=== PATIENT | female | born 1970 | race Two or more races ===

== ENCOUNTER 2025-05-08 20:34 | Inpatient (IN) | payer MEDICAID, OTHER ==
[~2025-05-08] VITALS: Ht 162.6 cm; Wt 77.2 kg
--- NOTE | 2025-05-08 20:50 | ED.PDOC ---
GI ASSESSMENT HPI Comments 54 year old female presents to the ED via EMS with a chief complaint of nausea/vomiting onset today (05/08/25). Per EMS, patient has PMHx DM, HTN, HLD. Patient is not able to see, but able to speak, ambulate with assistance. She began experiencing nausea/vomiting, red in color, family was concerned for possible blood, 911 was called. Since this morning patient was experiencing poor appetite, abdominal pain, generalized weakness. Patient was hypertensive upon EMS arrival 190 systolic, upon ED arrival BP was 207 systolic. No other symptoms or modifying factors present at this time. Chief Complaint: GI Bleed Time Seen by MD: 20:40 Reviewed Notes: Medications, Allergies Allergies: Coded Allergies: Iodine (Verified Allergy, Unknown, 05/08/25) Information Source: Patient, Emergency Med Personnel Mode of Arrival: EMS Timing: Hours Duration: Since onset Prehospital treatment: None Quality: Sharp Vomitus: Bloody Severity: Moderate Recent: None Recent Hx of: None Modifying Factors: Nothing Associated sign and symptoms: Nausea, Vomiting, Hematemesis, Abdominal Pain Past Medical History PAST MEDICAL HISTORY: DM, High Lipids, HTN Surgical History: Denies all surgeries TELEGRAPH OFFICE MANAGER History: No Pertinent TELEGRAPH OFFICE MANAGER History Family History Family History: Reviewed,noncontributory to illness, No family hx of Cancer, No family hx of DM, No family hx of Heart yon, No family hx of HTN, No family hx ofKidney yon, No family hx of Liver yon, No family hx of Lung yon, No family hx of Stroke Social History Smoker: Non-Smoker Alcohol: Denies ETOH Use Drugs: Denies Drug Use Lives In: Home Constitutional: reports: weakness; denies: chills, diaphoresis, fatigue, fever, malaise, sweats, others EENTM: denies: blurred vision, double vision, ear bleeding, ear discharge, ear drainage, ear pain, ear ringing, eye pain, eye redness, hearing loss, mouth pain, mouth swelling, nasal discharge, nose bleeding, nose congestion, nose pain, photophobia, tearing, throat pain, throat swelling, voice changes, others Respiratory: denies: cough, hemoptysis, orthopnea, SOB at rest, shortness of breath, SOB with excertion, stridor, wheezing, others Cardiovascular: reports: others (HYPERTENSION) Gastrointestinal: reports: abdominal pain, hematemesis, nausea, poor appetite, vomiting; denies: abdomen distended, blood streaked bowels, constipated, diarrhea, dysphagia, difficulty swallowing, melena, poor fluid intake, rectal bleeding, rectal pain, others Genitourinary: denies: abnormal vagina bleeding, burning, dyspareunia, dysuria, flank pain, frequency, hematuria, incontinence, pain, , vagina discharge, urgency, others Neurological: reports: weakness; denies: dizziness, fainting, headache, left sided numbness, left sided weakness, numbness, paresthesia, pre-existing deficit, right sided numbness, right sided weakness, seizure, speech problems, tingling, tremors, others Musculoskeletal: denies: back pain, gout, joint pain, joint swelling, muscle pain, muscle stiffness, neck pain, others Integumetry: denies: bruises, change in color, change in hair/nails, dryness, laceration, lesions, lumps, rash, wounds, others Allergic/Immunocompromised: denies: Difficulty Healing, Frequent Infections, Hives, Itching, others Hematologic/Lymphatic: denies: anemia, blood clots, easy bleeding, easy bruising, swollen glands, others Endocrine: denies: excessive hunger, excessive sweating, excessive thirst, excessive urination, flushing, intolerance to cold, intolerance to heat, unexplained weight gain, unexplained weight loss, others Psychiatric: denies: anxiety, bipolar disorder, depression, hopeless, panic disorder, schizophrenia, sleepless, suicidal, others All Other Systems: Reviewed and Negative Physical Exam General Appearance: Normal HEENT: Normal ENT Inspection, Pharynx Normal, TMs Normal Neck: Full Range of Motion, Non-Tender, Normal, Normal Inspection Respiratory: Chest Non-Tender, Lungs Clear, No Accessory Muscle Use, No Respiratory Distress, Normal Breath Sounds Cardiovascular: No Edema, No JVD, No Murmur, No Gallop, Normal Peripheral Pulses, Regular Rate/Rhythm Breast Exam: Deferred Gastrointestinal: No Organomegaly, Non Tender, No Pulsatile Mass, Normal Bowel Sounds, Soft Genitalia: Deferred Pelvic: Deferred Rectal: Deferred Extremities: No calf tenderness, Normal capillary refill, Normal inspection, Normal range of motion, Non-tender, No pedal edema Musculoskeletal : Apperance: Normal Neurologic: Alert, tanbark peeler II-XII nml as Tested, No Motor Deficits, Normal Affect, Normal Mood, No Sensory Deficits Cerebellar Function: Normal Reflexes: Normal Skin: Dry, Normal Color, Warm Lymphatic: No Adenopathy Was a procedure done? Was a procedure done?: No GI differential Dx Differential Diagnosis: Bowel Obstruction, Constipation, Gastritis/PUD, Gastroenteritis, GI hemorrhage, Dehydration, Other X-Ray, Labs, Meds, VS Vital Signs Date Time Temp Pulse Resp B/P (MAP) Pulse Ox O2 Delivery O2 Flow Rate FiO2 05/08/25 22:18 182/94 (123) 05/08/25 21:38 98.1 87 20 185/98 (127) 99 98.1 05/08/25 21:38 86 20 99 Room Air* 0 21 05/08/25 20:44 97.7 91 20 207/130 96 97.7 Lab Test 05/08/25 22:26 05/08/25 21:15 Range/Units Troponin I High Sensitivity 38 *H 43 *H </=34 ng/L White Blood Count 10.7 4.4-10.8 10^3/uL Red Blood Count 4.08 4.0-5.20 10^6/uL Hemoglobin 11.9 L 12.2-16.2 g/dL Hematocrit 35.1 L 36.0-46.0 % Mean Corpuscular Volume 86.0 80.0-100.0 fL Mean Corpuscular Hemoglobin 29.2 28.0-32.0 pg Mean Corpuscular Hemoglobin Concent 34.0 32.0-36.0 g/dL Red Cell Distribution Width 15.1 H 11.8-14.3 % Platelet Count 402 140-450 10^3/uL Mean Platelet Volume 8.0 6.9-10.8 fL Neutrophils (%) (Auto) 87.8 H 37.0-80.0 % Lymphocytes (%) (Auto) 8.8 L 10.0-50.0 % Monocytes (%) (Auto) 2.3 0.0-12.0 % Eosinophils (%) (Auto) 0.6 0.0-7.0 % Basophils (%) (Auto) 0.5 0.0-2.0 % Neutrophils # (Auto) 9.4 H 1.6-8.6 10 ^3/uL Lymphocytes # (Auto) 0.9 0.4-5.4 10 ^3/uL Monocytes # (Auto) 0.2 0-1.3 10 ^3/uL Eosinophils # (Auto) 0.1 0-0.8 10 ^3/uL Basophils # (Auto) 0.1 0-0.2 10 ^3/uL Nucleated Red Blood Cells 0.0 % Prothrombin Time 10.3 9.3-11.8 sec Prothrombin Time INR 0.97 0.9-1.15 Activated Partial Thromboplast Time 25.9 24.5-34.5 SEC Sodium Level 139 136-145 mmol/L Potassium Level 3.3 L 3.5-5.1 mmol/L Chloride Level 106 98-107 mmol/L Carbon Dioxide Level 15 L 20-31 mmol/L Anion Gap 18 H 5-15 Blood Urea Nitrogen 52 H 9-23 mg/dL Creatinine 1.97 H 0.550-1.02 mg/dL Glomerular Filtration Rate Calc 30 >90 mL/min BUN/Creatinine Ratio 26.4 H 10.0-20.0 Serum Glucose 156 H 74-106 mg/dL Calcium Level 9.3 8.7-10.4 mg/dL Magnesium Level 2.9 H 1.6-2.6 mg/dL Total Bilirubin 0.5 0.2-1.0 mg/dL Aspartate Amino Transferase (AST) 20 13-40 U/L Alanine Aminotransferase (ALT) 16 7-40 U/L Alkaline Phosphatase 64 46-116 U/L Total Protein 7.5 5.7-8.2 g/dL Albumin 4.2 3.2-4.8 g/dL Current Medications Medications (Trade) Dose Ordered Sig/Micheal Route Start Time Stop Time Status Last Admin Sodium Chloride 1,000 ml @ 1,000 mls/hr Q1H ONCE IV 05/08/25 21:00 05/08/25 21:59 DC 05/08/25 21:00 Ondansetron HCl (Zofran) 4 mg ONCE ONCE IV 05/08/25 21:00 05/08/25 21:01 DC 05/08/25 21:[address] [address] Ph: [phone] DIAGNOSTIC IMAGING Diagnostic Imaging Report : [id number] Signed PATIENT: MONICA HUYNH ACCT: [id number] UNIT: [id number] : 1970 LOC: ER ROOM / BED: / AGE / SEX: 54 / F ADM STATUS: REG ER SERVICE 57 ORDERING PHYSICIAN: BRANDON PRADO MD PROCEDURE(s): CXRP - CHEST PORTABLE REASON: SOB ORDER NUMBER(s): [id number], ACCESSION NUMBER(s): [id number] CHEST RADIOGRAPH Indication: SOB Technique: Single frontal view of the chest was obtained Comparison: None FINDINGS: Lines and Tubes: None Lungs: No focal consolidation. Pleura: No effusion. No pneumothorax. Cardiomediastinal contours: Unremarkable Bones: No acute osseous abnormality. IMPRESSION: No acute cardiopulmonary disease. ATED BY: HOLLY ADKINS DO DICTATED DATE/TIME: 05/08/252125 SIGNED BY: HOLLY ADKINS DO SIGNED DATE/TIME: 05/08/252125 CC: Time of 1ST Reevaluation: 21:10 Reevaluation 1ST: Unchanged Patient Education/Counseling: Diagnosis, Treatment Family Education/Counseling: No Family Present Additional Information The following tests were ordered, and results were reviewed by me: TROP-x3, CBC, CMP, PTPTT, XY CHEST, MAGNESIUM, EKG Additional Information was gathered from interviewing the following independent historians: EMS I reviewed and agreed with the following test results read by other providers: XY CHEST I discussed treatment and results with medical personnel and: patient Comprehensive systems review obtained and negative except for what is stated in the HPI. SEPSIS Sepsis Screen Physician Orders Chest Portable (05/08/25 20:58) Electrocardigram (05/08/25 20:58) Troponin-I Hs (05/08/25 23:58) Vital Signs Date Time Temp Pulse Resp B/P (MAP) Pulse Ox O2 Delivery O2 Flow Rate FiO2 05/08/25 22:18 182/94 (123) 05/08/25 21:38 98.1 87 20 185/98 (127) 99 98.1 05/08/25 21:38 86 20 99 Room Air* 0 21 05/08/25 20:44 97.7 91 20 207/130 96 97.7 Laboratory Tests Test 05/08/25 21:15 White Blood Count 10.7 10^3/uL (4.4-10.8) Medications Medications Dose Ordered Sig/Micheal Route Start Time Stop Time Status Last Admin Dose Admin Ondansetron HCl 4 mg ONCE ONCE IV 05/08/25 21:00 05/08/25 21:01 DC 05/08/25 21:00 Sodium Chloride 1,000 ml @ 1,000 mls/hr Q1H ONCE IV 05/08/25 21:00 05/08/25 21:59 DC 05/08/25 21:00 Departure 1 Departure Time of Disposition: 23:35 Impression: Primary Impression: Intractable vomiting Additional Impressions: Dehydration Intermediate coronary syndrome Blindness Disposition: ADMITTED INPATIENT Admit to: Tele Condition: Guarded Comments 54-year-old female with a history of blindness now presents by ambulance with nausea and vomiting malaise. There was streaks of blood in her vomit per family. Patient's H&H are slightly low with a hemoglobin of 12 and hematocrit at 35. Mild hypokalemia at 3.3. Acute renal injury with BUN creatinine high at 52 and 1.97. Initial troponins borderline elevated at 43 and 38. Patient was given aspirin and Zofran and IV fluids. Patient will need admission for supportive care and further workup. Critical Care Note Critical Care Time?: Yes (35 min-critical care time only) Critical care comment: Total critical care time: Approximately 36 minutes Due to a high probability of clinically significant, life threatening deterioration, the patient required my highest level of preparedness to intervene emergently and I personally spent this critical care time directly and personally managing the patient. This critical care time included obtaining a history; examining the patient; pulse oximetry; ordering and review of studies; arranging urgent treatment with development of a management plan; evaluation of patient's response to treatment; frequent reassessment; and, discussions with other providers. This critical care time was performed to assess and manage the high probability of imminent, life-threatening deterioration that could result in multi-organ failure. It was exclusive of separately billable procedures and treating other patients. Stability Stability form required: No I personally scribed for BRANDON PRADO MD ([email or web address]) on 05/08/25 at 20:50. Electronically submitted by Sangita Doyle ([email or web address]). I personally scribed for BRANDON PRADO MD ([email or web address]) on 05/08/25 at 21:49. Electronically submitted by Sangita Doyle ([email or web address]). BRANDON PRADO MD May 08, 2025 20:50
[2025-05-08] MEDS: SODIUM CHLORIDE 0.9% 1,000 ML IV ONE (21:00)
[2025-05-08] MEDS: ONDANSETRON HCL 4 MG/2 ML VIAL IV ONE (21:00)
--- NOTE | 2025-05-08 21:29 | DVH ---
CHEST RADIOGRAPH Indication: SOB Technique: Single frontal view of the chest was obtained Comparison: None FINDINGS: Lines and Tubes: None Lungs: No focal consolidation. Pleura: No effusion. No pneumothorax. Cardiomediastinal contours: Unremarkable Bones: No acute osseous abnormality. IMPRESSION: No acute cardiopulmonary disease.
[2025-05-08 21:38] VITALS: PULSE 86; RESP 20; O2SAT 99
[2025-05-08 21:42] LABS: Hematocrit 35.1 % (36.0-46.0); Hemoglobin 11.9 g/dL (12.2-16.2); Mean Corpuscular Hemoglobin 29.2 pg (28.0-32.0); Mean Corpuscular Volume 86.0 fL (80.0-100.0); Nucleated Red Blood Cells % 0.0 %
[2025-05-08 21:56] LABS: Alanine Aminotransferase 16 U/L (7-40); Albumin 4.2 g/dL (3.2-4.8); Alkaline Phosphatase 64 U/L (46-116); Anion Gap 18 (5-15); BUN/Creatinine Ratio 26.4 (10.0-20.0); Calcium 9.3 mg/dL (8.7-10.4); Chloride 106 mmol/L (98-107); Sodium 139 mmol/L (136-145); Total Protein 7.5 g/dL (5.7-8.2)
[2025-05-08 21:57] LABS: Bilirubin, Total 0.5 mg/dL (0.2-1.0)
[2025-05-08 22:05] LABS: INR 0.97 (0.9-1.15); Partial Thromboplastin Time 25.9 SEC (24.5-34.5); Prothrombin Time 10.3 sec (9.3-11.8)
[2025-05-08 22:11] LABS: Blood Urea Nitrogen 52 mg/dL (9-23); Carbon Dioxide 15 mmol/L (20-31); Glucose 156 mg/dL (74-106); Magnesium 2.9 mg/dL (1.6-2.6); Potassium 3.3 mmol/L (3.5-5.1)
[2025-05-09] MEDS: hydrALAZINE HCL 20 MG/ML VL IV ONE (00:32)
[2025-05-09] MEDS ORDERED: HYDROcodone-ACET 5/325MG TAB PO PRN (01:00)
[2025-05-09] MEDS ORDERED: ACETAMINOPHEN 325 MG TAB PO PRN (01:00)
[2025-05-09] MEDS ORDERED: DEXTROSE (50%) 50ML SYRG IV PRN (01:00)
--- NOTE | 2025-05-09 01:16 | DVHHP2 ---
History of Present Illness Reason for Visit: Elevated blood pressure History of Present Illness 54-year-old female presents for evaluation of elevated blood pressure. Patient reports having elevated blood pressure since this morning initially reading in the 200s. She has also had episodes of nausea with vomiting. No headache. Patient is legally blind. Denies chest pain or palpitations. No other acute complaints. Past Medical History CHF, hypertension, dyslipidemia, diabetes mellitus Past Surgical History Denies Family History Noncontributory Smoke: No ALCOHOL: none Drugs: None Lives: with Family Review of Systems Review of Systems Review of systems are currently negative otherwise addressed in HPI. Allergies: Coded Allergies: Iodine (Verified Allergy, Unknown, 05/08/25) Medications Current Medications Medications Dose Ordered Sig/Micheal Route Start Time Stop Time Status Last Admin Dose Admin Aspirin 162 mg DAILY PO 05/09/25 10:00 Pantoprazole Sodium 40 mg DAILY@0600 PO 05/09/25 06:00 Tamsulosin HCl 0.4 mg QPM PO 05/09/25 18:00 Nifedipine 30 mg DAILY PO 05/09/25 10:00 Losartan Potassium 100 mg DAILY PO 05/09/25 10:00 Furosemide 40 mg BIDD PO 05/09/25 06:00 Atorvastatin Calcium 40 mg HS PO 05/09/25 22:00 Hydralazine HCl 50 mg Q8HR PO 05/09/25 06:00 Empaglifozin 10 mg DAILY PO 05/09/25 10:00 Isosorbide Mononitrate 60 mg DAILY PO 05/09/25 10:00 Hydralazine HCl 10 mg Q6HP PRN IV 05/09/25 01:00 Diagnostic Test (Pha) 1 strip ACHS 05/09/25 07:00 Insulin Human Regular ACHS SC 05/09/25 07:00 Dextrose 50 ml UD PRN IV 05/09/25 01:00 Acetaminophen/ Hydrocodone Bitart 1 tab Q4HP PRN PO 05/09/25 01:00 Ondansetron HCl 4 mg Q4HP PRN IV 05/09/25 01:00 Acetaminophen 650 mg Q6HP PRN PO 05/09/25 01:00 Exam Vital Signs Vital Signs Date Time Temp Pulse Resp B/P (MAP) Pulse Ox O2 Delivery O2 Flow Rate FiO2 05/09/25 00:43 177/95 (122) 05/09/25 00:02 91 05/08/25 21:38 98.1 20 99 98.1 05/08/25 21:38 Room Air* 0 21 Exam Gen: 54-year-old female in mild distress Skin: Warm, dry, normal color and texture, no rash. HEENT: Normocephalic atraumatic, mucous membranes moist and pink. Neck: Cervical and supraclavicular nodes normal without enlargement, trachea is midline, thyroid gland is normal without masses. Pulmonary: Clear to auscultation and percussion bilaterally. Cardiac: Regular rate and rhythm. No murmur Abdomen: Soft, nontender, nondistended, bowel sounds present all 4 quadrants, no guarding, no rigidity, no organomegaly. Extremities: No cyanosis, clubbing, no edema Neuro: Cranial nerves II through XII grossly intact, normal affect and speech, no focal motor deficits. Labs/Xrays ORDERING PHYSICIAN: BRANDON PRADO MD PROCEDURE(s): CXRP - CHEST PORTABLE REASON: SOB ORDER NUMBER(s): [id number], ACCESSION NUMBER(s): [id number] CHEST RADIOGRAPH Indication: SOB Technique: Single frontal view of the chest was obtained Comparison: None FINDINGS: Lines and Tubes: None Lungs: No focal consolidation. Pleura: No effusion. No pneumothorax. Cardiomediastinal contours: Unremarkable Bones: No acute osseous abnormality. IMPRESSION: No acute cardiopulmonary disease. Labs Test 05/09/25 00:22 05/08/25 21:15 Range/Units White Blood Count 10.7 4.4-10.8 10^3/uL Red Blood Count 4.08 4.0-5.20 10^6/uL Hemoglobin 11.9 L 12.2-16.2 g/dL Hematocrit 35.1 L 36.0-46.0 % Mean Corpuscular Volume 86.0 80.0-100.0 fL Mean Corpuscular Hemoglobin 29.2 28.0-32.0 pg Mean Corpuscular Hemoglobin Concent 34.0 32.0-36.0 g/dL Red Cell Distribution Width 15.1 H 11.8-14.3 % Platelet Count 402 140-450 10^3/uL Mean Platelet Volume 8.0 6.9-10.8 fL Neutrophils (%) (Auto) 87.8 H 37.0-80.0 % Lymphocytes (%) (Auto) 8.8 L 10.0-50.0 % Monocytes (%) (Auto) 2.3 0.0-12.0 % Eosinophils (%) (Auto) 0.6 0.0-7.0 % Basophils (%) (Auto) 0.5 0.0-2.0 % Neutrophils # (Auto) 9.4 H 1.6-8.6 10 ^3/uL Lymphocytes # (Auto) 0.9 0.4-5.4 10 ^3/uL Monocytes # (Auto) 0.2 0-1.3 10 ^3/uL Eosinophils # (Auto) 0.1 0-0.8 10 ^3/uL Basophils # (Auto) 0.1 0-0.2 10 ^3/uL Nucleated Red Blood Cells 0.0 % Prothrombin Time 10.3 9.3-11.8 sec Prothrombin Time INR 0.97 0.9-1.15 Activated Partial Thromboplast Time 25.9 24.5-34.5 SEC Sodium Level 139 136-145 mmol/L Potassium Level 3.3 L 3.5-5.1 mmol/L Chloride Level 106 98-107 mmol/L Carbon Dioxide Level 15 L 20-31 mmol/L Anion Gap 18 H 5-15 Blood Urea Nitrogen 52 H 9-23 mg/dL Creatinine 1.97 H 0.550-1.02 mg/dL Glomerular Filtration Rate Calc 30 >90 mL/min BUN/Creatinine Ratio 26.4 H 10.0-20.0 Serum Glucose 156 H 74-106 mg/dL Calcium Level 9.3 8.7-10.4 mg/dL Magnesium Level 2.9 H 1.6-2.6 mg/dL Total Bilirubin 0.5 0.2-1.0 mg/dL Aspartate Amino Transferase (AST) 20 13-40 U/L Alanine Aminotransferase (ALT) 16 7-40 U/L Alkaline Phosphatase 64 46-116 U/L B-Type Natriuretic Peptide 581.48 0-100 pg/mL Total Protein 7.5 5.7-8.2 g/dL Albumin 4.2 3.2-4.8 g/dL SEPSIS Sepsis Screen Date sepsis recognized/suspect: May 08, 2025 Time Sepsis recognized/suspect: 2142 Recent Procedure: No On Antibiotic Therapy: No Respiratory Rate >20: No Heart Rate >90: No Temp<36 C (96.8 F) or >38.3 C: No SBP <90 or MAP <65 mmHG: No New Acute Mental Status Change: No Is the patient on CPAP, BIPAP,: No Physician Orders Chest Portable (05/08/25 20:58) Electrocardigram (05/08/25 20:58) Troponin-I Hs (05/08/25 23:58) Admit (05/09/25 00:53) Aspirin Tablet (05/09/25 10:00) Tamsulosin Hydrochloride (Flomax) (05/09/25 18:00) Nifedipine Er (Procardia Xl (Time-Releas (05/09/25 10:00) Losartan Tablet (Cozaar Tablet) (05/09/25 10:00) Furosemide Tablet (Lasix Tablet) (05/09/25 06:00) Atorvastatin (Lipitor) (05/09/25 22:00) Hydralazine Hcl Tablet (Apresoline Table (05/09/25 06:00) Empagliflozin (Jardiance) (05/09/25 10:00) Isosorbide Mononitrate Tablet (Imdur Er (05/09/25 10:00) Hydralazine Injection (Apresoline Inject (05/09/25 01:00) Basic Metabolic Panel (05/10/25 04:00) Glucose Blood (Accu-Chek Comfort Curve T (05/09/25 07:00) Insulin R (Human) (Insulin R) (05/09/25 07:00) Dextrose 50% Syringe (05/09/25 01:00) Hydrocodone-Acet 5/325mg Tab ([place] 5/32 (05/09/25 01:00) Ondansetron Hcl (Zofran) (05/09/25 01:00) Cardiac Diet-2gna,Lofat,Lochol (05/09/25 Breakfast) Echo 2d Mode Cardiac Dop (05/09/25 00:53) Condition: Stable (05/09/25 00:53) Acetaminophen Tablet (Tylenol Tablet) (05/09/25 01:00) Bedrest With Bathroom Privileg (05/09/25 00:53) Pantoprazole Tablet (Protonix Tablet) (05/09/25 06:00) Vital Signs Date Time Temp Pulse Resp B/P (MAP) Pulse Ox O2 Delivery O2 Flow Rate FiO2 05/09/25 00:43 177/95 (122) 05/09/25 00:32 190/104 05/09/25 00:02 91 193/105 (134) 05/08/25 22:18 182/94 (123) 05/08/25 21:38 98.1 87 20 185/98 (127) 99 98.1 05/08/25 21:38 86 20 99 Room Air* 0 21 05/08/25 20:44 97.7 91 20 207/130 96 97.7 Laboratory Tests Test 05/08/25 21:15 White Blood Count 10.7 10^3/uL (4.4-10.8) Medications Medications Dose Ordered Sig/Micheal Route Start Time Stop Time Status Last Admin Dose Admin Hydralazine HCl 10 mg ONCE ONCE IV 05/09/25 00:30 05/09/25 00:31 DC 05/09/25 00:32 10 MG Ondansetron HCl 4 mg ONCE ONCE IV 05/08/25 21:00 05/08/25 21:01 DC 05/08/25 21:00 4 MG Sodium Chloride 1,000 ml @ 1,000 mls/hr Q1H ONCE IV 05/08/25 21:00 05/08/25 21:59 DC 05/08/25 21:00 1,000 MLS/HR Assessment/Plan Assessment/Plan Hypertensive urgency Acute kidney injury Diabetes mellitus Elevated troponin, demand ischemia Legally blind Congestive heart failure Plan Admit the patient to [facility] to the hospitalist Nephrology consult Cardiology consultation Echocardiogram pending Resume home medications Continue treatment per orders. Plan discussed with: Daughter My Orders Orders - AMIE TEIXEIRA AGACNP Procedure Category Date Status Time Admit ADMIT 05/09/25 Transmitted 00:53 Aspirin Tablet PHA 05/09/25 In Process 10:00 Tamsulosin PHA 05/09/25 In Process Hydrochloride (Flomax) 18:00 Nifedipine Er PHA 05/09/25 In Process (Procardia Xl 10:00 Losartan Tablet PHA 05/09/25 In Process (Cozaar Tablet) 10:00 Furosemide Tablet PHA 05/09/25 In Process (Lasix Tablet) 06:00 Atorvastatin (Lipitor) PHA 8/20/25 In Process 22:00 Hydralazine Hcl PHA 05/09/25 In Process Tablet (Apresoline 06:00 Empagliflozin PHA 05/09/25 In Process (Jardiance) 10:00 Isosorbide PHA 05/09/25 In Process Mononitrate Tablet 10:00 Hydralazine Injection PHA 05/09/25 In Process (Apresoline Inject 01:00 Basic Metabolic Panel LAB 05/10/25 Verified 04:00 Glucose Blood PHA 05/09/25 In Process (Accu-Chek Comfort 07:00 Insulin R (Human) PHA 05/09/25 In Process (Insulin R) 07:00 Dextrose 50% Syringe PHA 05/09/25 In Process 01:00 Hydrocodone-Acet PHA 05/09/25 In Process 5/325mg Tab ([place] 01:00 Ondansetron Hcl PHA 05/09/25 In Process (Zofran) 01:00 Cardiac DIET 05/09/25 Transmitted Diet-2gna,Lofat,Lochol Breakfast Echo 2d Mode Cardiac US 05/09/25 Logged DOP 00:53 Condition: Stable CLAUDETTE 05/09/25 In Process 00:53 Acetaminophen Tablet PHA 05/09/25 In Process (Tylenol Tablet) 01:00 Bedrest With Bathroom CLAUDETTE 05/09/25 In Process Privileg 00:53 Pantoprazole Tablet PHA 05/09/25 In Process (Protonix Tablet) 06:00 Date of Service: May 08, 2025 Billing Provider: AMIE TEIXEIRA Common Visit Codes: [id number] INP/OBS CARE (HIGH) AMIE TEIXEIRA May 09, 2025 01:16
[2025-05-09] MEDS: ONDANSETRON HCL 4 MG/2 ML VIAL IV PRN (02:36)
[2025-05-09] MEDS: hydrALAZINE HCL 20 MG/ML VL IV PRN (02:47)
[2025-05-09] MEDS: FUROSEMIDE 40 MG TAB PO SCH (05:37)
[2025-05-09] MEDS: PANTOPRAZOLE 40 MG TAB PO SCH (05:38)
[2025-05-09] MEDS: ACCU-CHEK COMFORT CURVE STRIP VI SCH (06:09)
[2025-05-09] MEDS: InsuLIN REG 1unit/0.01ml Soln (100units/ml) SC SCH (06:12)
[2025-05-09 08:00] VITALS: PULSE 93; RESP 19; O2SAT 96
[2025-05-09] MEDS ORDERED: POTASSIUM CHL 20MEQ/100ML 100 ML IV ONE (08:15)
[2025-05-09 08:18] LABS: Hematocrit 34.1 % (36.0-46.0); Hemoglobin 11.2 g/dL (12.2-16.2); Mean Corpuscular Hemoglobin 29.4 pg (28.0-32.0); Mean Corpuscular Volume 89.2 fL (80.0-100.0); Nucleated Red Blood Cells % 0.1 %
[2025-05-09 08:26] LABS: Alanine Aminotransferase 17 U/L (7-40); Albumin 4.3 g/dL (3.2-4.8); Alkaline Phosphatase 60 U/L (46-116); Anion Gap 21 (5-15); BUN/Creatinine Ratio 26.5 (10.0-20.0); Bilirubin, Total 0.5 mg/dL (0.2-1.0); Calcium 9.1 mg/dL (8.7-10.4); Sodium 141 mmol/L (136-145); Total Protein 7.1 g/dL (5.7-8.2)
[2025-05-09 08:27] LABS: Blood Urea Nitrogen 53 mg/dL (9-23); Carbon Dioxide 12 mmol/L (20-31); Chloride 108 mmol/L (98-107); Glucose 179 mg/dL (74-106); Potassium 3.3 mmol/L (3.5-5.1)
[2025-05-09 08:55] LABS: Alanine Aminotransferase 14 U/L (7-40); Albumin 4.2 g/dL (3.2-4.8); Alkaline Phosphatase 59 U/L (46-116); Anion Gap 21 (5-15); BUN/Creatinine Ratio 25.4 (10.0-20.0); Bilirubin, Total 0.4 mg/dL (0.2-1.0); Calcium 9.4 mg/dL (8.7-10.4); Sodium 142 mmol/L (136-145); Total Protein 7.0 g/dL (5.7-8.2)
[2025-05-09 08:58] LABS: Blood Urea Nitrogen 57 mg/dL (9-23); Carbon Dioxide 12 mmol/L (20-31); Chloride 109 mmol/L (98-107); Cholesterol 266 mg/dL (< 200); Glucose 190 mg/dL (74-106); HDL Cholesterol 51 mg/dL (40-59); Potassium 3.2 mmol/L (3.5-5.1); Triglycerides 225 mg/dL (< 150)
--- NOTE | 2025-05-09 09:52 | DVH ---
US KIDNEY HISTORY: 54-old Female being evaluated for LESLEY. COMPARISON: None TECHNIQUE: Transverse and longitudinal grayscale and color doppler images were obtained of the kidney s and bladder. FINDINGS: Right kidney: Size: 10.5 cm Cortical thickness: Normal Echogenicity: Normal Stones: None Masses: None Hydronephrosis: yes Ureters: Not well visualized. Other: None Left kidney: Size: 11.0 cm Cortical thickness: Normal Echogenicity: Normal Stones: None Masses: None Hydronephrosis: None Ureters: Not well visualized. Other: None Bladder: Distended. Other: None. IMPRESSION: Trace right hydronephrosis.
[2025-05-09] MEDS ORDERED: ENOXAPARIN SOD 40 MG/0.4 ML SYRINGE SC SCH (10:00)
--- NOTE | 2025-05-09 10:00 | DVHPNRES ---
Progress Note Date Seen: May 09, 2025 Resident Creating Document: PATRICK GALVAN Medical Necessity Reason Pt with a Central, PICC or Fol: Yes The following are medically ne: Reynoso Catheter Subjective Review of Systems 54-year-old female presented for the evaluation of elevated blood pressure. Her daughter has been monitoring her blood pressure daily and patient takes losartan 100 mg daily, and yesterday her blood pressure went to 200/121 mmHg at home which prompted this visit. patient's daughter reports that she was on carvedilol 6.25 mg but had recently stopped it suggested by manager of learning. Since then her blood pressure has gone up. She also has episodes of nausea and uncontrolled vomiting of more than 8 episodes per day. She has been vomiting in the past few days whatever she eats, no blood noted. She has no diarrhea. Patient's daughter also reports that patient has been unable to see / blind for the past 3 months due to her glaucoma. Patient denies any chest pain, palpitations, dizziness but has headaches due to the glaucoma. Patient also has been on a Reynoso's for 6 months, and it was removed on the of this month. patient lives in [place] but daughter is trying to establish care in [place]. Past Medical History: CHF, hypertension, dyslipidemia, diabetes mellitus type 2, CKD stage 4 Past Surgical History: Denies Family History: reviewed and Noncontributory social history: Patient lives with family. She does not smoke, drink alcohol or take any other drugs allergies: Iodine Home medications: Jardiance 10 mg, pantoprazole 40 mg, nifedipine 60 mg, furosemide 40 mg, aspirin 81 mg, acetazolamide 250 mg, escitalopram 10 mg, losartan 100 mg, atorvastatin 40 mg, tamsulosin 0.4 mg Objective vital signs Vital Sign Date Time Temp Pulse Resp B/P (MAP) Pulse Ox O2 Delivery O2 Flow Rate FiO2 05/09/25 08:00 98.9 93 19 150/72 (98) 96 98.9 05/09/25 08:00 Room Air* 0 21 medications Current Medications Medications Dose Ordered Sig/Micheal Route Start Time Stop Time Status Last Admin Dose Admin Aspirin 162 mg DAILY PO 05/09/25 10:00 Pantoprazole Sodium 40 mg DAILY@0600 PO 05/09/25 06:00 05/09/25 05:38 40 MG Tamsulosin HCl 0.4 mg QPM PO 05/09/25 18:00 Nifedipine 30 mg DAILY PO 05/09/25 10:00 Losartan Potassium 100 mg DAILY PO 05/09/25 10:00 Furosemide 40 mg BIDD PO 05/09/25 06:00 05/09/25 05:37 40 MG Atorvastatin Calcium 40 mg HS PO 05/09/25 22:00 Hydralazine HCl 50 mg Q8HR PO 05/09/25 06:00 05/09/25 05:37 50 MG Empaglifozin 10 mg DAILY PO 05/09/25 10:00 Isosorbide Mononitrate 60 mg DAILY PO 05/09/25 10:00 Hydralazine HCl 10 mg Q6HP PRN IV 05/09/25 01:00 05/09/25 02:47 10 MG Diagnostic Test (Pha) 1 strip ACHS 05/09/25 07:00 05/09/25 06:09 1 STRIP Insulin Human Regular ACHS SC 05/09/25 07:00 05/09/25 06:12 4 UNITS Dextrose 50 ml UD PRN IV 05/09/25 01:00 Acetaminophen/ Hydrocodone Bitart 1 tab Q4HP PRN PO 05/09/25 01:00 Ondansetron HCl 4 mg Q4HP PRN IV 05/09/25 01:00 05/09/25 02:36 4 MG Acetaminophen 650 mg Q6HP PRN PO 05/09/25 01:00 Carvedilol 6.25 mg Q12HR PO 05/09/25 10:00 Ergocalciferol 50,000 unit Q7D PO 05/09/25 09:45 Enoxaparin Sodium 30 mg DAILY SC 05/09/25 10:00 Examination Gen: 54-year-old female in mild distress, Reynoso's placed Skin: Warm, dry, normal color and texture, no rash. HEENT: Normocephalic atraumatic, mucous membranes moist and pink, b/l blindness Neck: Cervical and supraclavicular nodes normal without enlargement, trachea is midline, thyroid gland is normal without masses. Pulmonary: Clear to auscultation and percussion bilaterally. Cardiac: Regular rate and rhythm. No murmur Abdomen: Soft, tender in the epigastric region, nondistended, bowel sounds present all 4 quadrants, no guarding, no rigidity, no organomegaly. Extremities: No cyanosis, clubbing, no edema Neuro: Cranial nerves II through XII grossly intact, normal affect and speech, no focal motor deficits. laboratory and microbiology Laboratory Tests 05/09/25 08:09 05/09/25 00:22 Test 05/09/25 08:09 Range/Units Serum Glucose 190 H 74-106 mg/dL Labs and/or images reviewed: Labs reviewed by me, Image(s) reviewed by me Problem List/Assessment/Plan Problem List/Assessment/Plan #Hypertensive emergency #NSTEMI, type 2 #Prolonged QTC -EKG -Elevated troponin, demand ischemia 43, 38, 40 -clonidine 0.2 mg given once, discontinued -Losartan 100 mg per orally daily -hydralazine 50 mg q8 p.o. -Nifedipine 30 mg per orally daily -Aspirin 162 mg per orally daily -acetaminophen 650 mg q.6 PRN -Hamilton 5/325 mg 1 tab q.4 PRN -Isosorbide mononitrate 60 mg per orally daily -CXR-Normal # intractable nausea and vomiting due to possible gastroenteritis # slow transit constipation -ct abd/pelvis without contrast shows: Large volume stool within the rectum. Correlate for fecal impaction and other etiologies. - Zofran 4 mg q.4 PRN -Reglan 10 mg q.6 PRN -Benadryl 25 mg IV Q 8 scheduled -MiraLax 17 g per oral -ceftriaxone 1 g IV daily #Acute kidney injury on CKD stage 4 due to hypertensive emergency #Acute urinary retention #possible neurogenic bladder -creatinine 1.97, 2.24 -Monitor -Nephrology suggested, Currently off blood pressure drip;Currently on losartan;Recommend potassium placement ; Recommend Reynoso catheter placement due to obstruction and patient require Reynoso leg bag and urology follow-through. possible neurogenic bladder; Renal diet; Start oral vitamin-D once per week; Obtain phosphorus level ; Obtain urinalysis and urine protein creatinine ratio -bladder scan shows 2000 mL fluid -Reynoso's catheter - Tamsulosin 0.4 mg per orally daily #Diabetes mellitus HbA1c 6.1 -mild sliding scale insulin #hyperlipidemia -Lipid panels, pending -Atorvastatin 40 mg HS #Congestive heart failure, NYHA 3, -BNP 581.48 -echo, pending -Jardiance 10 mg per orally daily -Carvedilol 6.25 mg per orally b.i.d. daily -Losartan 100 mg per orally daily #Hypokalemia -Repleted #Colonic diverticular disease. -as ssen in ct abd/pelvis without contrast -outpatient followup #Nonobstructing right renal calculi. #Trace right hydronephrosis. 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 Ulloa, patient and nurse. Plan discussed with: Patient, Other (rn) My Orders My Orders Orders - PATRICK GALVAN Procedure Category Date Status Time Urinalysis LAB 05/09/25 Logged 08:00 Drug Screen LAB 05/09/25 Logged 08:00 Hemoglobin A1c LAB 05/09/25 In Process 08:04 Parathyroid Hormone LAB 05/09/25 In Process Intact 09:29 Reynoso Catheters ED NURSING 05/09/25 Transmitted Carvedilol Tablet PHA 05/09/25 In Process (Coreg Tablet) 10:00 Ergocalciferol PHA 05/09/25 In Process (Vitamin D 50,000 09:45 Enoxaparin Sodium PHA 05/09/25 In Process (Lovenox) 10:00 Date of Service: May 09, 2025 Billing Provider: TUCKER GARCIAS MD Common Visit Codes: [id number] INP/OBS CARE(HIGH) PATRICK GALVAN May 09, 2025 10:00 TUCKER GARCIAS MD May 13, 2025 16:45
--- NOTE | 2025-05-09 10:06 | DVHINCON2 ---
Date of service: May 09, 2025 Reason for Consultation [place] History of Present Illness 54-year-old female history obtained from daughter at bedside with the nurse a [place] translation Patient was diagnosed with chronic kidney disease stage 4 biopsy-proven diabetic nephropathy in December of 2024, hypertension, chronic urinary retention, diabetes. Patient had a chronic urinary Reynoso for approximately six months which was recently removed. Patient also was taking multiple blood pressure medications and recently her carvedilol was discontinued. Patient was brought to the hospital by her daughter due to uncontrolled blood pressure and nausea vomiting. On admission she was found to have systolic blood pressure greater than 200. Nephrology consulted for acute management. Kidney ultrasound was ordered which showed greater than 2 L in her bladder. Allergies: Coded Allergies: Iodine (Verified Allergy, Unknown, 05/08/25) Current Medications Current Medications Medications (Trade) Dose Ordered Sig/Micheal Route PRN Reason Start Time Stop Time Status Last Admin Aspirin 162 mg DAILY PO 05/09/25 10:00 05/09/25 10:53 Pantoprazole Sodium (Protonix Tablet) 40 mg DAILY@0600 PO 05/09/25 06:00 05/09/25 05:38 Tamsulosin HCl (Flomax) 0.4 mg QPM PO 05/09/25 18:00 Nifedipine (Procardia Xl (Time-Release)) 30 mg DAILY PO 05/09/25 10:00 05/09/25 16:21 DC 05/09/25 10:53 Losartan Potassium (Cozaar Tablet) 100 mg DAILY PO 05/09/25 10:00 05/09/25 10:54 Furosemide (Lasix Tablet) 40 mg BIDD PO 05/09/25 06:00 05/09/25 16:21 DC 05/09/25 05:37 Atorvastatin Calcium (Lipitor) 40 mg HS PO 05/09/25 22:00 Hydralazine HCl (Apresoline Tablet) 50 mg Q8HR PO 05/09/25 06:00 05/09/25 16:21 DC 05/09/25 05:37 Empaglifozin (Jardiance) 10 mg DAILY PO 05/09/25 10:00 05/09/25 10:55 Isosorbide Mononitrate (Imdur Er Tablet) 60 mg DAILY PO 05/09/25 10:00 05/09/25 16:21 DC 05/09/25 10:54 Hydralazine HCl (Apresoline Injection) 10 mg Q6HP PRN IV SBP>150 05/09/25 01:00 05/09/25 16:21 DC 05/09/25 02:47 Diagnostic Test (Pha) (Accu-Chek Comfort Curve T) 1 strip ACHS 05/09/25 07:00 05/09/25 12:20 Insulin Human Regular (InsuLIN R) ACHS SC 05/09/25 07:00 05/09/25 12:30 Dextrose 50 ml UD PRN IV Blood Sugar LESS THAN 60 05/09/25 01:00 Acetaminophen/ Hydrocodone Bitart (Speculator 5/325MG Tab) 1 tab Q4HP PRN PO MODERATE PAIN (4-6 PAIN SCALE) 05/09/25 01:00 Ondansetron HCl (Zofran) 4 mg Q4HP PRN IV NAUSEA / VOMITING 05/09/25 01:00 05/09/25 10:57 Acetaminophen (Tylenol Tablet) 650 mg Q6HP PRN PO PAIN SCALE 1-3 OR TEMP>100.4 05/09/25 01:00 Carvedilol (Coreg Tablet) 6.25 mg Q12HR PO 05/09/25 10:00 05/09/25 10:55 Enoxaparin Sodium (Lovenox) 40 mg DAILY SC 05/09/25 10:00 05/09/25 09:49 DC Ergocalciferol (Vitamin D 50,000 Unit) 50,000 unit Q7D PO 05/09/25 09:45 05/09/25 10:52 Enoxaparin Sodium (Lovenox) 30 mg DAILY SC 05/09/25 10:00 05/09/25 10:56 Sodium Bicarbonate 650 mg TID PO 05/09/25 14:00 Calcium Acetate (Phoslo Capsule) 667 mg TIDWMEALS PO 05/09/25 18:00 Furosemide (Lasix Tablet) 20 mg DAILY PO 05/10/25 10:00 UNV Isosorbide Mononitrate (Imdur Er Tablet) 120 mg DAILY PO 05/10/25 10:00 UNV Nifedipine (Procardia Xl (Time-Release)) 60 mg DAILY PO 05/10/25 10:00 UNV Tamsulosin HCl (Flomax) 0.4 mg QPM PO 05/09/25 18:00 UNV Ceftriaxone Sodium 50 ml @ 100 mls/hr DAILY@09 IV 05/10/25 09:00 UNV Diphenhydramine HCl (Benadryl Injection) 25 mg Q8HP IV 05/09/25 22:00 UNV Bisacodyl (Dulcolax Suppository) 10 mg QHSP [place] 05/09/25 22:00 UNV Review of Systems Nausea Vomiting Weakness H&P Exam Vital Signs/I&O Vital Sign Date Time Temp Pulse Resp B/P (MAP) Pulse Ox O2 Delivery O2 Flow Rate FiO2 05/09/25 16:54 97.1 87 17 166/87 (113) 100 97.1 05/09/25 16:42 Room Air* 0 21 Physical Exam Middle-aged female appears older than stated age Mildly in distress Regular rate and rhythm No crackles of the bases Abdomen is soft with mild suprapubic fullness No pitting edema Labs/Diagnostic Data Labs/Diagnostic Data Laboratory Tests Test 05/09/25 13:15 05/09/25 13:14 05/09/25 12:17 05/09/25 08:09 Range/Units Urine Creatinine 55.05 30.0-125.0 mg/dL Urine Protein/Creatinine Ratio 16.86 Urine Total Protein 928.2 H 1-14 mg/dL Urine Opiates Screen Neg NEGATIVE Urine Fentanyl Screen Neg NEGATIVE Urine Barbiturates Screen Neg NEGATIVE Urine Phencyclidine Screen Neg NEGATIVE Urine Amphetamines Screen Neg NEGATIVE Urine Benzodiazepines Screen Neg NEGATIVE Urine Cocaine Screen Neg NEGATIVE Urine Cannabinoids Screen Neg NEGATIVE Urine Color Light-brown Yellow Urine Clarity Ex.turbid Clear Urine pH 6.5 5.0-9.0 Urine Specific [place] 1.017 1.001-1.035 Urine Protein 3+ H Negative Urine Ketones 1+ H Negative Urine Blood 1+ H Negative /uL Urine Nitrite Negative Negative Urine Bilirubin Negative Negative Urine Urobilinogen Normal Negative mg/dL Urine Leukocyte Esterase 3+ Negative /uL Urine RBC 35 0 - 4 /hpf Urine WBC Clumps Present None Seen /hpf Urine Microscopic WBC 825 H 0-5 /HPF Urine Squamous Epithelial Cells None seen <5 /hpf Urine Bacteria None seen None Seen /hpf Urine Yeast (Budding) Loaded None Seen /hpf Urine Glucose 2+ H Normal mg/dL POC Glucose 176 H 70-106 mg/dl Sodium Level 142 136-145 mmol/L Potassium Level 3.2 L 3.5-5.1 mmol/L Chloride Level 109 H 98-107 mmol/L Carbon Dioxide Level 12 L 20-31 mmol/L Anion Gap 21 H 5-15 Blood Urea Nitrogen 57 H 9-23 mg/dL Creatinine 2.24 H 0.550-1.02 mg/dL Glomerular Filtration Rate Calc 26 >90 mL/min BUN/Creatinine Ratio 25.4 H 10.0-20.0 Serum Glucose 190 H 74-106 mg/dL Hemoglobin A1c 6.1 H <5.7 % A1C Calcium Level 9.4 8.7-10.4 mg/dL Phosphorus Level 6.3 H 2.4-5.1 mg/dL Total Bilirubin 0.4 0.2-1.0 mg/dL Aspartate Amino Transferase (AST) 18 13-40 U/L Alanine Aminotransferase (ALT) 14 7-40 U/L Alkaline Phosphatase 59 46-116 U/L Total Protein 7.0 5.7-8.2 g/dL Albumin 4.2 3.2-4.8 g/dL Triglycerides Level 225 H < 150 mg/dL Cholesterol Level 266 H < 200 mg/dL LDL Cholesterol 166 H < 100 mg/dL HDL Cholesterol 51 40-59 mg/dL Vitamin B12 Level 879 211-911 pg/mL Vitamin D 25-Hydroxy 12.7 L 30.0-100 ng/mL Thyroid Stimulating Hormone (TSH) 2.00 0.55-4.78 uIU/mL Parathyroid Hormone (Intact) 34.4 18.4-80.1 pg/mL Test 05/09/25 00:22 05/08/25 22:26 05/08/25 21:15 Range/Units White Blood Count 11.9 H 10.7 4.4-10.8 10^3/uL Red Blood Count 3.82 L 4.08 4.0-5.20 10^6/uL Hemoglobin 11.2 L 11.9 L 12.2-16.2 g/dL Hematocrit 34.1 L 35.1 L 36.0-46.0 % Mean Corpuscular Volume 89.2 86.0 80.0-100.0 fL Mean Corpuscular Hemoglobin 29.4 29.2 28.0-32.0 pg Mean Corpuscular Hemoglobin Concent 33.0 34.0 32.0-36.0 g/dL Red Cell Distribution Width 15.4 H 15.1 H 11.8-14.3 % Platelet Count 361 402 140-450 10^3/uL Mean Platelet Volume 8.1 8.0 6.9-10.8 fL Neutrophils (%) (Auto) 91.0 H 87.8 H 37.0-80.0 % Lymphocytes (%) (Auto) 7.1 L 8.8 L 10.0-50.0 % Monocytes (%) (Auto) 1.2 2.3 0.0-12.0 % Eosinophils (%) (Auto) 0.1 0.6 0.0-7.0 % Basophils (%) (Auto) 0.6 0.5 0.0-2.0 % Neutrophils # (Auto) 10.8 H 9.4 H 1.6-8.6 10 ^3/uL Lymphocytes # (Auto) 0.8 0.9 0.4-5.4 10 ^3/uL Monocytes # (Auto) 0.1 0.2 0-1.3 10 ^3/uL Eosinophils # (Auto) 0 0.1 0-0.8 10 ^3/uL Basophils # (Auto) 0.1 0.1 0-0.2 10 ^3/uL Nucleated Red Blood Cells 0.1 0.0 % Sodium Level 141 139 136-145 mmol/L Potassium Level 3.3 L 3.3 L 3.5-5.1 mmol/L Chloride Level 108 H 106 98-107 mmol/L Carbon Dioxide Level 12 L 15 L 20-31 mmol/L Anion Gap 21 H 18 H 5-15 Blood Urea Nitrogen 53 H 52 H 9-23 mg/dL Creatinine 2.00 H 1.97 H 0.550-1.02 mg/dL Glomerular Filtration Rate Calc 29 30 >90 mL/min BUN/Creatinine Ratio 26.5 H 26.4 H 10.0-20.0 Serum Glucose 179 H 156 H 74-106 mg/dL Calcium Level 9.1 9.3 8.7-10.4 mg/dL Total Bilirubin 0.5 0.5 0.2-1.0 mg/dL Aspartate Amino Transferase (AST) 20 20 13-40 U/L Alanine Aminotransferase (ALT) 17 16 7-40 U/L Alkaline Phosphatase 60 64 46-116 U/L Troponin I High Sensitivity 40 *H 38 *H 43 *H </=34 ng/L Total Protein 7.1 7.5 5.7-8.2 g/dL Albumin 4.3 4.2 3.2-4.8 g/dL Prothrombin Time 10.3 9.3-11.8 sec Prothrombin Time INR 0.97 0.9-1.15 Activated Partial Thromboplast Time 25.9 24.5-34.5 SEC Magnesium Level 2.9 H 1.6-2.6 mg/dL B-Type Natriuretic Peptide 581.48 0-100 pg/mL Assessment 54-year-old female with biopsy-proven diabetic nephropathy presents to the hospital with hypertensive emergency Acute kidney injury hemodynamically mediated Chronic kidney disease stage 4 due to diabetic nephropathy Hypertensive emergency Vitamin-D deficiency Hypokalemia Currently off blood pressure drip Currently on losartan Recommend potassium placement Recommend Reynoso catheter placement due to obstruction and patient require Reynoso leg bag and urology follow-through. possible neurogenic bladder Renal diet Start oral vitamin-D once per week Obtain phosphorus level Obtain urinalysis and urine protein creatinine ratio Care time spent 55 minutes Patient's discharge will follow-up with me in renal Clinic for management of chronic kidney disease Plan discussed with: Patient, Daughter BLANQUITAElhamARMANI MD May 09, 2025 10:06
[2025-05-09] MEDS: POTASSIUM CHL 20 Meq TABLET PO ONE (10:52)
[2025-05-09] MEDS: ERGOCALCIFEROL 50,000 UNIT(1.25MG) CAP PO SCH (10:52)
[2025-05-09] MEDS: ISOSORBIDE MONONITRATE ER 60 MG TAB PO SCH (10:54)
[2025-05-09] MEDS: LOSARTAN POTASSIUM 50 MG TAB PO SCH (10:54)
[2025-05-09] MEDS: CARVEDILOL 3.125 MG TAB PO SCH (10:55)
[2025-05-09] MEDS: EMPAGLIFLOZIN 10 MG TAB PO SCH (10:55)
[2025-05-09] MEDS: ENOXAPARIN SOD 30 MG/0.3 ML SYRINGE SC SCH (10:56)
[2025-05-09 13:32] LABS: Urine Budding Yeast LOADED /hpf (None Seen); Urine Protein, UAD 3+ (Negative); Urine WBC Clumps PRESENT /hpf (None Seen)
[2025-05-09 13:37] LABS: Opiate Scree,Urine Neg (NEGATIVE)
[2025-05-09 13:38] LABS: Amphetamine Screen, Urine Neg (NEGATIVE); Barbiturate Scree,Urine Neg (NEGATIVE); Benzodiazephine Screen, Urine Neg (NEGATIVE); Cannabinoid Screen, Urine Neg (NEGATIVE); Cocaine Screen, Urine Neg (NEGATIVE); Phencyclidine Screen, Urine Neg (NEGATIVE)
[2025-05-09 13:42] LABS: Protein, Urine 928.2 mg/dL (1-14)
[2025-05-09] MEDS: SODIUM BICARBONATE 650 MG TAB PO SCH (14:00)
--- NOTE | 2025-05-09 14:20 | DVH ---
Indication: INTRACTABLE VOMITTING Technique: CT axial images of the abdomen and pelvis are obtained without contrast. Coronal and sagit alexandr reformats were obtained. Radiation Dose Information: CTDI volume is 12.35 mGy. Dose-length product is 715 mGy*cm Comparison: None FINDINGS: There is limited interpretation of the abdomen and pelvis without administration of intravenous contr ast. Lung bases demonstrate atelectasis. Small pericardial effusion. Adrenal glands, spleen, pancreas, liver unremarkable in shape. No CT evidence for cholelithiasis. No hydronephrosis. Nonobstructing right renal calculi up to 2 mm. Bilateral renal vascular calcificat ions. 2 mm nonobstructing left renal calculus. Stomach partially distended. Small bowel loops are normal in caliber. Large volume stool in the rect um. Colonic diverticula. Normal appendix. Abdominal aortic atherosclerotic disease. Bladder decompressed by Reynoso catheter. No free pelvic flui d. Intrauterine device. No inguinal lymphadenopathy. [id number] thoracolumbar degenerative disc disease. IMPRESSION: Limited evaluation without contrast. Large volume stool within the rectum. Correlate for fecal impaction and other etiologies. Intrauterine device. Colonic diverticular disease. Nonobstructing right renal calculi. Small pericardial effusion. Soft tissue edema / anasarca. Other findings as described.
[2025-05-09 15:34] VITALS: BP 166/90; PULSE 87; RESP 17; TEMP 97.1; O2SAT 100
--- NOTE | 2025-05-09 16:17 | DVHSR ---
APPROVED REPORT EXAM: LIMITED Two-dimensional and M-mode echocardiogram with Doppler and color Doppler. Blood Pressure: 157/99 mmHg INDICATION Dyspnea Heart Failure ef RISK FACTORS Height: 5'4, Weight: 170 DIMENSIONS LVDd4.7 (3.8-5.7cm)LA (2D)4.7 (1.9-4.0cm)Aortic Root3.0 (2.0-3.7cm) LVDs2.9 (2.5-4.0cm)LA (MM) (1.9-4.0cm)Aortic Cusp Exc1.6 (1.5-2.0cm) EF (%) 65.0 (55-70%)Rt. Atrium4.1 (1.9-4.0cm)Asc. Aorta cm IVSd0.9 (0.7-1.1cm)RV (D) (1.8-2.4cm) PWd1.1 (0.7-1.1cm) Mitral Valve MitralMitral Stenosis E wavem/sMV Mean GR.3mmHg A wavem/sMV Peak GR.8mmHg E/A ratio0.02D MVAcm2 Aortic Valve Aortic ValveAortic Stenosis V11.06m/Virgie Mean GR.4mmHg V21.37m/Virgie Peak GR.8mmHg LVOT Diameter2.0 (1.8-2.4cm)Doppler AVA2.43cm2 Other Information Quality : Technically LimitedRhythm : Technically limited study due to patient position. Conclusion LVEF normal 55-60%, Right ventricular size and function normal Mild left and right atrial dilation
[2025-05-09 16:42] VITALS: PULSE 87; RESP 17; O2SAT 100
[2025-05-09 16:54] VITALS: BP 166/87; PULSE 87; RESP 17; TEMP 97.1; O2SAT 100
[2025-05-09] MEDS: TAMSULOSIN HYDROCHLORIDE 0.4 MG CAP PO SCH (17:34)
[2025-05-09] MEDS: LACTATED RINGER'S 500 ML IV ONE (17:34)
[2025-05-09] MEDS: CALCIUM ACETATE 667 MG CAP PO SCH (17:34)
[2025-05-09] MEDS: POLYETHYLENE GLYCOL 17 GM PWDR PO ONE (17:49)
[2025-05-09] MEDS ORDERED: TAMSULOSIN HYDROCHLORIDE 0.4 MG CAP PO SCH (18:00)
[2025-05-09] MEDS: cefTRIAXone 1GM/50ML D5W 50 ML IV ONE (18:05)
[2025-05-09] MEDS ORDERED: ATOR40TA52 PO (18:57)
[2025-05-09] MEDS ORDERED: LATA0.008 OP (18:57)
[2025-05-09] MEDS ORDERED: ACET500T58 PO (18:57)
[2025-05-09] MEDS ORDERED: HYDR25TA87 PO (18:57)
[2025-05-09] MEDS ORDERED: DORZ2SOL18 EACHEYE (18:57)
[2025-05-09] MEDS ORDERED: ASPI-543 PO (18:57)
[2025-05-09] MEDS ORDERED: ISOS1TAB29 PO (18:57)
[2025-05-09] MEDS ORDERED: METO10TA3 PO (18:57)
[2025-05-09] MEDS ORDERED: ONDA-155 PO (18:57)
[2025-05-09] MEDS ORDERED: FURO40TA4 PO (18:57)
[2025-05-09] MEDS ORDERED: EMPA1TAB PO (18:57)
[2025-05-09] MEDS ORDERED: PANT1INJ3 PO (18:57)
[2025-05-09] MEDS ORDERED: CARV12.544 PO (18:57)
[2025-05-09] MEDS ORDERED: METOCLOPRAMIDE HCL 5MG/ml INJ 2ml VIAL IV PRN ×2 (19:15)
[2025-05-09 20:00] VITALS: PULSE 88; PULSE 95; RESP 18; O2SAT 99
[2025-05-09 21:00] VITALS: BP 163/92; PULSE 93; RESP 19; TEMP 98.3; O2SAT 99
[2025-05-09] MEDS: BISACODYL 10 MG RECT SUPP PR SCH (22:00)
[2025-05-09] MEDS ORDERED: diphenhdrAMINE HCL 50 MG/1 ML VL IV SCH (22:00)
[2025-05-09] MEDS: diphenhdrAMINE HCL 50 MG/1 ML VL IV SCH (22:43)
[2025-05-09] MEDS: ATORVASTATIN 20 MG TAB PO SCH (22:44)
[2025-05-10] VITALS (8 sets, daily range): BP systolic 129–156; BP diastolic 62–82; PULSE 71–95; RESP 14–18; TEMP 98.1–98.8; O2SAT 95–99
[2025-05-10 07:28] LABS: Anion Gap 20 (5-15); Calcium 9.3 mg/dL (8.7-10.4); Sodium 145 mmol/L (136-145)
[2025-05-10 07:34] LABS: BUN/Creatinine Ratio 23.1 (10.0-20.0)
[2025-05-10 07:40] LABS: Blood Urea Nitrogen 67 mg/dL (9-23); Carbon Dioxide 16 mmol/L (20-31); Chloride 109 mmol/L (98-107); Glucose 156 mg/dL (74-106); Potassium 3.3 mmol/L (3.5-5.1)
[2025-05-10 08:04] LABS: Hematocrit 30.5 % (36.0-46.0); Hemoglobin 10.1 g/dL (12.2-16.2); Mean Corpuscular Hemoglobin 28.5 pg (28.0-32.0); Mean Corpuscular Volume 86.4 fL (80.0-100.0); Nucleated Red Blood Cells % 0.0 %
[2025-05-10] MEDS: POTASSIUM CHL 20MEQ/100ML 100 ML IV ONE (08:45)
[2025-05-10] MEDS ORDERED: cefTRIAXone 1GM/50ML D5W 50 ML IV SCH (09:00)
[2025-05-10] MEDS: FUROSEMIDE 40 MG TAB PO SCH (09:41)
[2025-05-10] MEDS: ISOSORBIDE MONONITRATE ER 60 MG TAB PO SCH (09:42)
[2025-05-10] MEDS ORDERED: VANCOMYCIN PER PHARMACY 0 MG IV SCH (09:45)
--- NOTE | 2025-05-10 11:07 | ECG ---
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
--- NOTE | 2025-05-10 11:18 | DVH ---
Technique: Real-time ultrasound images through the pelvis using a transabdominal transducer. Indication: SEPTIC IUD Comparison: None Findings: The uterus measures 9.7 cm. The endometrium is not adequately characterized. There is an intrauterin e device. No definitive fluid seen in the endometrial canal Bilateral ovaries nonvisualized There is no significant free fluid in the pelvis. Impression: Intrauterine device. No endometrial canal fluid collection identified. Endometrial thickness not lary quately assessed Bilateral ovaries nonvisualized.
[2025-05-10] MEDS: VANCOMYCIN 1.25GM/250ML 250 ML IV ONE (12:00)
--- NOTE | 2025-05-10 12:28 | DVHPNRES ---
Progress Note Date Seen: May 10, 2025 Resident Creating Document: PATRICK GALVAN RESIDENT Medical Necessity Reason Pt with a Central, PICC or Fol: Yes The following are medically ne: Reynoso Catheter Subjective Review of Systems 54-year-old female presented for the evaluation of elevated blood pressure. Her daughter has been monitoring her blood pressure daily and patient takes losartan 100 mg daily, and yesterday her blood pressure went to 200/121 mmHg at home which prompted this visit. patient's daughter reports that she was on carvedilol 6.25 mg but had recently stopped it suggested by sales rep. Since then her blood pressure has gone up. She also has episodes of nausea and uncontrolled vomiting of more than 8 episodes per day. She has been vomiting in the past few days whatever she eats, no blood noted. Patient's daughter also reports that patient has been unable to see / blind for the past 3 months due to her glaucoma. Patient denies any chest pain, palpitations, dizziness but has headaches due to the glaucoma. Patient also has been on a Ryenoso's for 6 months, and it was removed on the of this month. patient lives in [place] but daughter is trying to establish care in [place]. Past Medical History: CHF, hypertension, dyslipidemia, diabetes mellitus type 2, CKD stage 4 Past Surgical History: Denies Family History: reviewed and Noncontributory social history: Patient lives with family. She does not smoke, drink alcohol or take any other drugs allergies: Iodine Home medications: Jardiance 10 mg, pantoprazole 40 mg, nifedipine 60 mg, furosemide 40 mg, aspirin 81 mg, acetazolamide 250 mg, escitalopram 10 mg, losartan 100 mg, atorvastatin 40 mg, tamsulosin 0.4 mg 05/10: Patient was seen at the bedside. Benadryl helped the patient with vomiting and she was able to sleep well but in the morning she had 3 episodes of vomiting which was brown, black according to the nurse. She had 2 bowel movements after the enema yesterday and she reports feeling better after passing the stool. Today ceftriaxone was stopped and vancomycin, cefepime and Flagyl have been started. Reglan has been turning to scheduled dose and Ativan 1 mg q.4 PRN has been added. Objective vital signs Vital Sign Date Time Temp Pulse Resp B/P (MAP) Pulse Ox O2 Delivery O2 Flow Rate FiO2 05/10/25 09:44 156/78 8/21/25 09:39 86 05/10/25 09:00 98.1 17 99 98.1 05/09/25 20:00 Room Air* 0 21 Total Intake and Output 05/09/25 05/09/25 05/10/25 15:00 23:00 07:00 Intake Total 0 ml 120 ml Output Total 2100 ml 300 ml Balance -2100 ml 0 ml -180 ml medications Current Medications Medications Dose Ordered Sig/Micheal Route Start Time Stop Time Status Last Admin Dose Admin Aspirin 162 mg DAILY PO 05/09/25 10:00 05/10/25 09:40 162 MG Pantoprazole Sodium 40 mg DAILY@0600 PO 05/09/25 06:00 05/09/25 05:38 40 MG Tamsulosin HCl 0.4 mg QPM PO 05/09/25 18:00 Atorvastatin Calcium 40 mg HS PO 05/09/25 22:00 05/09/25 22:44 40 MG Empaglifozin 10 mg DAILY PO 05/09/25 10:00 05/10/25 09:40 10 MG Diagnostic Test (Pha) 1 strip ACHS 05/09/25 07:00 05/10/25 11:30 1 STRIP Insulin Human Regular ACHS SC 05/09/25 07:00 05/10/25 11:30 3 UNITS Dextrose 50 ml UD PRN IV 05/09/25 01:00 Acetaminophen/ Hydrocodone Bitart 1 tab Q4HP PRN PO 05/09/25 01:00 Acetaminophen 650 mg Q6HP PRN PO 05/09/25 01:00 Carvedilol 6.25 mg Q12HR PO 05/09/25 10:00 05/10/25 09:39 6.25 MG Ergocalciferol 50,000 unit Q7D PO 05/09/25 09:45 05/09/25 10:52 50,000 UNIT Enoxaparin Sodium 30 mg DAILY SC 05/09/25 10:00 05/10/25 09:44 30 MG Sodium Bicarbonate 650 mg TID PO 05/09/25 14:00 05/09/25 22:44 650 MG Calcium Acetate 667 mg TIDWMEALS PO 05/09/25 18:00 Furosemide 20 mg DAILY PO 05/10/25 10:00 05/10/25 09:41 20 MG Isosorbide Mononitrate 120 mg DAILY PO 05/10/25 10:00 05/10/25 09:42 120 MG Nifedipine 60 mg DAILY PO 05/10/25 10:00 05/10/25 09:44 60 MG Bisacodyl 10 mg QHSP LA 05/09/25 22:00 Diphenhydramine HCl 25 mg Q8HR IV 05/09/25 22:00 05/09/25 22:43 25 MG Metoclopramide HCl 10 mg Q6HR PRN IV 05/09/25 19:15 Cefepime HCl 50 ml @ 12.5 mls/hr DAILY IV 05/11/25 10:00 Vancomycin HCl 0 ml @ 0 mls/hr UD IV 05/10/25 09:45 Metronidazole 100 ml @ 100 mls/hr Q8HR IV 05/10/25 09:45 05/10/25 09:45 100 MLS/HR Examination Gen: 54-year-old female in mild distress Skin: Warm, dry, normal color and texture, no rash. HEENT: Normocephalic atraumatic, mucous membranes moist and pink, b/l blindness Neck: Cervical and supraclavicular nodes normal without enlargement, trachea is midline, thyroid gland is normal without masses. Pulmonary: Clear to auscultation and percussion bilaterally. Cardiac: Regular rate and rhythm. No murmur Abdomen: Soft, tender in the epigastric region, nondistended, bowel sounds present all 4 quadrants, no guarding, no rigidity, no organomegaly. Extremities: No cyanosis, clubbing, no edema Neuro: Cranial nerves II through XII grossly intact, normal affect and speech, no focal motor deficits. laboratory and microbiology Laboratory Tests 05/10/25 06:16 Test 05/10/25 06:16 Range/Units Serum Glucose 156 H 74-106 mg/dL Microbiology Date/Time Source Procedure Growth Status 05/09/25 17:44 Voided Urine Urine Culture - Preliminary Resulted Labs and/or images reviewed: Labs reviewed by me, Image(s) reviewed by me Problem List/Assessment/Plan Problem List/Assessment/Plan #Hypertensive emergency #NSTEMI, type 2 #Prolonged QTC -EKG -Elevated troponin, demand ischemia 43, 38, 40 -clonidine 0.2 mg given once, discontinued -Losartan 100 mg per orally daily -hydralazine 50 mg q8 p.o. -Nifedipine 30 mg per orally daily -Aspirin 162 mg per orally daily -acetaminophen 650 mg q.6 PRN -[place] 5/325 mg 1 tab q.4 PRN -Isosorbide mononitrate 60 mg per orally daily -CXR-Normal # intractable nausea and vomiting due to possible gastroenteritis # slow transit constipation -ct abd/pelvis without contrast shows: Large volume stool within the rectum. Correlate for fecal impaction and other etiologies. - Zofran 4 mg q.4 PRN -Reglan 10 mg q.6 PRN changed to scheduled on 05/10 -Ativan 1 mg q.4 PRN -Benadryl 25 mg IV Q 8 scheduled -MiraLax 17 g per oral -ceftriaxone 1 g IV daily stopped on 05/10 -05/10 began vancomycin, cefepime, Flagyl #Acute kidney injury on CKD stage 4 due to hypertensive emergency #Acute urinary retention #possible neurogenic bladder -creatinine 1.97, 2.24 -Monitor -Nephrology suggested, Currently off blood pressure drip;Currently on losartan;Recommend potassium placement ; Recommend Reynoso catheter placement due to obstruction and patient require Reynoso leg bag and urology follow-through. possible neurogenic bladder; Renal diet; Start oral vitamin-D once per week; Obtain phosphorus level ; Obtain urinalysis and urine protein creatinine ratio -bladder scan shows 2000 mL fluid -Reynoso's catheter - Tamsulosin 0.4 mg per orally daily #Diabetes mellitus HbA1c 6.1 -mild sliding scale insulin #hyperlipidemia -Lipid panels, pending -Atorvastatin 40 mg HS #Congestive heart failure, systolic, HfpEf, NYHA 3, -BNP 581.48 -echo 05/09, LVEF normal 55-60%,; Right ventricular size and function normal; Mild left and right atrial dilation -Jardiance 10 mg per orally daily, stop on 05/11 -Carvedilol 6.25 mg per orally b.i.d. daily -Losartan 100 mg per orally daily -Furosemide 20 mg per orally #Hypokalemia -Repleted #Colonic diverticular disease. -as ssen in ct abd/pelvis without contrast -outpatient followup #Nonobstructing right renal calculi. #Trace right hydronephrosis. 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 Ulloa, patient and nurse. Plan discussed with: Patient, Other (rn) My Orders My Orders Orders - PATRICK GALVAN Procedure Category Date Status Time Ct Ab Pel Wo Con-No CT 05/09/25 Resulted Oral Or Iv 13:28 Diphenhdramine PHA 05/09/25 In Process Injection (Benadryl 22:00 Date of Service: May 10, 2025 Billing Provider: TUCKER GARCIAS MD Common Visit Codes: [id number] INP/OBS CARE(HIGH) PATRICK GALVAN May 10, 2025 12:28 TUCKER GARCIAS MD May 13, 2025 16:52
[2025-05-10] MEDS ORDERED: LORazepam 2MG/ML-1ML VIAL IV PRN (12:30)
[2025-05-10] MEDS: METOCLOPRAMIDE HCL 5MG/ml INJ 2ml VIAL IV SCH (12:30)
[2025-05-10] MEDS: SODIUM BICARB 50mEq/50ml Vial 150 ML in D5W 5% 1,000 ML IV ONE (17:00)
--- NOTE | 2025-05-10 18:10 | DVHPN2 ---
Progress Note Date Seen: May 10, 2025 Medical Necessity Reason Pt with a Central, PICC or Fol: Yes The following are medically ne: Reynoso Catheter Subjective Patient reports: Feels worse (s/p enema and vomitting overnight ) Changes from previous H/P or p: Changes Objective vital signs Vital Sign Date Time Temp Pulse Resp B/P (MAP) Pulse Ox O2 Delivery O2 Flow Rate FiO2 05/10/25 17:00 98.1 71 16 132/62 (85) 97 98.1 05/10/25 08:00 Room Air* 0 21 Total Intake and Output 05/09/25 05/09/25 05/10/25 15:00 23:00 07:00 Intake Total 0 ml 120 ml Output Total 2100 ml 300 ml Balance -2100 ml 0 ml -180 ml medications Current Medications Medications Dose Ordered Sig/Micheal Route Start Time Stop Time Status Last Admin Dose Admin Aspirin 162 mg DAILY PO 05/09/25 10:00 05/10/25 09:40 162 MG Pantoprazole Sodium 40 mg DAILY@0600 PO 05/09/25 06:00 05/09/25 05:38 40 MG Tamsulosin HCl 0.4 mg QPM PO 05/09/25 18:00 Atorvastatin Calcium 40 mg HS PO 05/09/25 22:00 05/09/25 22:44 40 MG Empaglifozin 10 mg DAILY PO 05/09/25 10:00 05/10/25 09:40 10 MG Diagnostic Test (Pha) 1 strip ACHS 05/09/25 07:00 05/10/25 16:17 1 STRIP Insulin Human Regular ACHS SC 05/09/25 07:00 05/10/25 16:38 3 UNITS Dextrose 50 ml UD PRN IV 05/09/25 01:00 Acetaminophen/ Hydrocodone Bitart 1 tab Q4HP PRN PO 05/09/25 01:00 Acetaminophen 650 mg Q6HP PRN PO 05/09/25 01:00 Carvedilol 6.25 mg Q12HR PO 05/09/25 10:00 05/10/25 09:39 6.25 MG Ergocalciferol 50,000 unit Q7D PO 05/09/25 09:45 05/09/25 10:52 50,000 UNIT Enoxaparin Sodium 30 mg DAILY SC 05/09/25 10:00 05/10/25 09:44 30 MG Sodium Bicarbonate 650 mg TID PO 05/09/25 14:00 05/10/25 14:47 650 MG Calcium Acetate 667 mg TIDWMEALS PO 05/09/25 18:00 Furosemide 20 mg DAILY PO 05/10/25 10:00 05/10/25 09:41 20 MG Isosorbide Mononitrate 120 mg DAILY PO 05/10/25 10:00 05/10/25 09:42 120 MG Nifedipine 60 mg DAILY PO 05/10/25 10:00 05/10/25 09:44 60 MG Bisacodyl 10 mg QHSP [place] 05/09/25 22:00 Diphenhydramine HCl 25 mg Q8HR IV 05/09/25 22:00 05/10/25 14:50 25 MG Cefepime HCl 50 ml @ 12.5 mls/hr DAILY IV 05/11/25 10:00 Vancomycin HCl 0 ml @ 0 mls/hr UD IV 05/10/25 09:45 Metronidazole 100 ml @ 100 mls/hr Q8HR IV 05/10/25 09:45 05/10/25 14:00 100 MLS/HR Metoclopramide HCl 10 mg Q6HR IV 05/10/25 12:30 05/10/25 12:30 10 MG Lorazepam 1 mg Q4HPRN PRN IV 05/10/25 12:30 Examination: GENERAL:Abnormal, ABDOMEN:Abnormal, :Abnormal laboratory and microbiology Laboratory Tests 05/10/25 06:16 Test 05/10/25 06:16 Range/Units Serum Glucose 156 H 74-106 mg/dL Microbiology Date/Time Source Procedure Growth Status 05/09/25 17:44 Voided Urine Urine Culture - Preliminary Resulted Problem List/Assessment/Plan Problem List/Assessment/Plan 54-year-old female with biopsy-proven diabetic nephropathy presents to the hospital with hypertensive emergency Acute kidney injury hemodynamically mediated Chronic kidney disease stage 4 due to diabetic nephropathy Hypertensive emergency Vitamin-D deficiency Hypokalemia Nephrotic range proteinuria avoid hypotension sodium bicarbonate drip potassium replacement Currently on losartan continue Reynoso catheter due to obstruction and patient require Reynoso leg bag and urology follow-through. possible neurogenic bladder Renal diet oral vitamin-D once per week phosphorus binder when diet is resumed no emergent indication for dialysis but given poor condition will require close followup Plan discussed with: Patient My Orders My Orders Orders - ARMANI CHAVEZ MD Procedure Category Date Status Time Sodium Bicarb PHA 05/10/25 In Process 50meq/50ml Vial 14:15 Total Time (mins): 40 ARMANI CHAVEZ MD May 10, 2025 18:10
[2025-05-11] VITALS (8 sets, daily range): BP systolic 124–153; BP diastolic 68–97; PULSE 65–76; RESP 16–18; TEMP 98.1–98.6; O2SAT 94–99
[2025-05-11 09:00] LABS: Hematocrit 27.2 % (36.0-46.0); Hemoglobin 9.2 g/dL (12.2-16.2); Mean Corpuscular Hemoglobin 28.8 pg (28.0-32.0); Mean Corpuscular Volume 85.6 fL (80.0-100.0); Nucleated Red Blood Cells % 0.0 %
[2025-05-11 09:03] LABS: Sodium 143 mmol/L (136-145)
[2025-05-11 09:04] LABS: Anion Gap 15 (5-15); Carbon Dioxide 21 mmol/L (20-31)
[2025-05-11 09:05] LABS: Calcium 8.5 mg/dL (8.7-10.4); Chloride 107 mmol/L (98-107); Potassium 2.7 mmol/L (3.5-5.1)
[2025-05-11 09:09] LABS: BUN/Creatinine Ratio 22.0 (10.0-20.0)
[2025-05-11 09:14] LABS: Blood Urea Nitrogen 59 mg/dL (9-23); Glucose 119 mg/dL (74-106)
[2025-05-11] MEDS: SOD CHL 0.45% 1,000 ML IV SCH (09:15)
--- NOTE | 2025-05-11 09:17 | DVHPN2 ---
Progress Note Date Seen: May 11, 2025 Medical Necessity Reason Pt with a Central, PICC or Fol: Yes The following are medically ne: Reynoso Catheter Subjective Review of Systems: GI:Abnormal Other Systems: Patient seen and examined by myself today in follow-up Objective vital signs Vital Sign Date Time Temp Pulse Resp B/P (MAP) Pulse Ox O2 Delivery O2 Flow Rate FiO2 05/11/25 08:56 98.4 67 16 147/83 (104) 97 98.4 05/10/25 20:00 Room Air* 0 21 Total Intake and Output 05/10/25 05/10/25 05/11/25 15:00 23:00 07:00 Intake Total 550 ml 650 ml 740 ml Output Total 200 ml 425 ml Balance 550 ml 450 ml 315 ml medications Current Medications Medications Dose Ordered Sig/Micheal Route Start Time Stop Time Status Last Admin Dose Admin Aspirin 162 mg DAILY PO 05/09/25 10:00 05/10/25 09:40 162 MG Pantoprazole Sodium 40 mg DAILY@0600 PO 05/09/25 06:00 05/11/25 05:51 40 MG Tamsulosin HCl 0.4 mg QPM PO 05/09/25 18:00 Atorvastatin Calcium 40 mg HS PO 05/09/25 22:00 05/10/25 22:09 40 MG Empaglifozin 10 mg DAILY PO 05/09/25 10:00 05/10/25 09:40 10 MG Diagnostic Test (Pha) 1 strip ACHS 05/09/25 07:00 05/11/25 06:56 1 STRIP Insulin Human Regular ACHS SC 05/09/25 07:00 05/11/25 06:36 2 UNITS Dextrose 50 ml UD PRN IV 05/09/25 01:00 Acetaminophen/ Hydrocodone Bitart 1 tab Q4HP PRN PO 05/09/25 01:00 Acetaminophen 650 mg Q6HP PRN PO 05/09/25 01:00 Carvedilol 6.25 mg Q12HR PO 05/09/25 10:00 05/10/25 22:10 6.25 MG Ergocalciferol 50,000 unit Q7D PO 05/09/25 09:45 05/09/25 10:52 50,000 UNIT Enoxaparin Sodium 30 mg DAILY SC 05/09/25 10:00 05/10/25 09:44 30 MG Sodium Bicarbonate 650 mg TID PO 05/09/25 14:00 05/11/25 05:50 650 MG Calcium Acetate 667 mg TIDWMEALS PO 05/09/25 18:00 Furosemide 20 mg DAILY PO 05/10/25 10:00 05/10/25 09:41 20 MG Isosorbide Mononitrate 120 mg DAILY PO 05/10/25 10:00 05/10/25 09:42 120 MG Nifedipine 60 mg DAILY PO 05/10/25 10:00 05/10/25 09:44 60 MG Bisacodyl 10 mg QHSP [place] 05/09/25 22:00 05/10/25 22:16 10 MG Diphenhydramine HCl 25 mg Q8HR IV 05/09/25 22:00 05/11/25 05:51 25 MG Cefepime HCl 50 ml @ 12.5 mls/hr DAILY IV 05/11/25 10:00 Vancomycin HCl 0 ml @ 0 mls/hr UD IV 05/10/25 09:45 Metronidazole 100 ml @ 100 mls/hr Q8HR IV 05/10/25 09:45 05/11/25 05:50 100 MLS/HR Metoclopramide HCl 10 mg Q6HR IV 05/10/25 12:30 05/11/25 05:50 10 MG Lorazepam 1 mg Q4HPRN PRN IV 05/10/25 12:30 Examination: LUNGS:Normal, CVS:Normal, MSK:Normal laboratory and microbiology Laboratory Tests 05/11/25 07:06 Test 05/11/25 07:06 Range/Units Serum Glucose Pending Microbiology Date/Time Source Procedure Growth Status 05/09/25 18:00 Blood Blood Culture - Preliminary NO GROWTH AFTER 24 HOURS OF INCUBATION. Resulted 05/09/25 17:44 Voided Urine Urine Culture - Preliminary Resulted Problem List/Assessment/Plan Problem List/Assessment/Plan Acute kidney injury superimposed Chronic Kidney Disease secondary hemodynamic mediated Vancomycin nephrotoxicity Diabetic ketoacidosis Hyperglycemia Hypokalemia Hypertensive emergency Vitamin-D deficiency Hypokalemia Nephrotic proteinuria due to underlying diabetic nephropathy Recommendations Kidney function slightly worsened Increased urine output Strict I&Os Discontinue furosemide Discontinue vancomycin potassium replacement IV fluid half NS at 75 cc/hour Insulin sliding scale We will continue to follow Plan discussed with: Patient My Orders My Orders Orders - CODY VAIL MD Procedure Category Date Status Time Urine LAB 05/11/25 Verified Protein/Creatinine Urine Sodium LAB 05/11/25 Verified 09:08 Urine Creatinine LAB 05/11/25 Verified 09:08 1/2 Ns PHA 05/11/25 Verified 09:15 Potassium Chl [place] PHA 05/11/25 Verified KCL 09:15 Potassium Effervesent PHA 05/11/25 Verified Tab (Klor-Con/Ef) 10:00 CODY VAIL MD May 11, 2025 09:17
[2025-05-11] MEDS: POTASSIUM EFFERVESENT TAB 25 MEQ PO SCH (09:41)
[2025-05-11] MEDS: POTASSIUM CHL 20MEQ/100ML 100 ML IV SCH (09:42)
[2025-05-11] MEDS: CEFEPIME 1GM/ 50ML 50 ML IV SCH (09:42)
[2025-05-11] MEDS ORDERED: POTASSIUM CHLORIDE 60 MEQ, LIDOCAINE 1% (LOCAL ANESTH.) 6 ML in SODIUM CHL 0.9% 500 ML IV ONE (09:45)
[2025-05-11] MEDS ORDERED: POTASSIUM EFFERVESENT TAB 25 MEQ PO ONE (09:45)
--- NOTE | 2025-05-11 09:50 | DVH ---
Exam: XY KUB ABDOMEN SINGLE VIEW Indication: kidneys Comparison: US PELVIC on DOS: 05/10/25, CT CT AB PEL WO CON-NO ORAL OR IV on DOS: 05/09/25, US KIDNEY o n DOS: 05/09/25 Technique: 1 radiographic views of the abdomen. Findings: Nonobstructive bowel gas pattern noted. There is no definite evidence for pneumoperitoneum. No abnormal calcifications noted. Moderate colonic stool. Intrauterine device in-situ. Impression: Nonobstructive bowel gas pattern noted.
[2025-05-11] MEDS: POTASSIUM CHL 20MEQ/100ML 100 ML IV ONE (12:40)
--- NOTE | 2025-05-11 14:01 | DVHPNRES ---
Progress Note Date Seen: May 11, 2025 Resident Creating Document: PATRICK GALVAN RESIDENT Medical Necessity Reason Pt with a Central, PICC or Fol: Yes The following are medically ne: Reynoso Catheter Subjective Review of Systems 54-year-old female presented for the evaluation of elevated blood pressure. Her daughter has been monitoring her blood pressure daily and patient takes losartan 100 mg daily, and yesterday her blood pressure went to 200/121 mmHg at home which prompted this visit. patient's daughter reports that she was on carvedilol 6.25 mg but had recently stopped it suggested by sponsorship manager. Since then her blood pressure has gone up. She also has episodes of nausea and uncontrolled vomiting of more than 8 episodes per day. She has been vomiting in the past few days whatever she eats, no blood noted. Patient's daughter also reports that patient has been unable to see / blind for the past 3 months due to her glaucoma. Patient denies any chest pain, palpitations, dizziness but has headaches due to the glaucoma. Patient also has been on a Reynoso's for 6 months, and it was removed on the of this month. patient lives in [place] but daughter is trying to establish care in [place]. Past Medical History: CHF, hypertension, dyslipidemia, diabetes mellitus type 2, CKD stage 4 Past Surgical History: Denies Family History: reviewed and Noncontributory social history: Patient lives with family. She does not smoke, drink alcohol or take any other drugs allergies: Iodine Home medications: Jardiance 10 mg, pantoprazole 40 mg, nifedipine 60 mg, furosemide 40 mg, aspirin 81 mg, acetazolamide 250 mg, escitalopram 10 mg, losartan 100 mg, atorvastatin 40 mg, tamsulosin 0.4 mg 05/10:Patient was seen at the bedside. Benadryl helped the patient with vomiting and she was able to sleep well but in the morning she had 3 episodes of vomiting which was brown, black according to the nurse. She had 2 bowel movements after the enema yesterday and she reports feeling better after passing the stool. Today ceftriaxone was stopped and vancomycin, cefepime and Flagyl have been started. Reglan has been turning to scheduled dose and Ativan 1 mg q.4 PRN has been added. 05/11: Patient was seen by me at the bedside. Patient reports feeling much better and has no abdominal pain. She vomited only once yesterday 7:00 p.m. and has not vomited since then. we repleted potassium as levels were low today as well. As per nephrology, vancomycin is causing nephrotoxicity so has been stopped. Furosemide stopped as well. Patient has DKA, euglycemic so we stopped Jardiance. Patient reports metformin was given to her before but her doctor stopped it. Today we changed her diet from NPO to clear liquid diet and possible discharge tomorrow if patient is able to tolerate soft diet. Plan discussed with Dr. Ulloa, patient to be discharge with 7 days of MiraLax, 7 days off Reglan BID. Since Jardiance has been stopped and her doctor has advised no metformin, Januvia 25 mg once a day may be given to the patient as her GFR is less than 30 Objective vital signs Vital Sign Date Time Temp Pulse Resp B/P (MAP) Pulse Ox O2 Delivery O2 Flow Rate FiO2 05/11/25 09:48 77 05/11/25 09:47 147/83 05/11/25 08:56 98.4 16 97 98.4 05/10/25 20:00 Room Air* 0 21 Total Intake and Output 05/10/25 05/10/25 05/11/25 15:00 23:00 07:00 Intake Total 550 ml 650 ml 740 ml Output Total 200 ml 425 ml Balance 550 ml 450 ml 315 ml medications Current Medications Medications Dose Ordered Sig/Micheal Route Start Time Stop Time Status Last Admin Dose Admin Aspirin 162 mg DAILY PO 05/09/25 10:00 05/11/25 09:45 162 MG Pantoprazole Sodium 40 mg DAILY@0600 PO 05/09/25 06:00 05/11/25 05:51 40 MG Tamsulosin HCl 0.4 mg QPM PO 05/09/25 18:00 Atorvastatin Calcium 40 mg HS PO 05/09/25 22:00 05/10/25 22:09 40 MG Diagnostic Test (Pha) 1 strip ACHS 05/09/25 07:00 05/11/25 12:25 1 STRIP Insulin Human Regular ACHS SC 05/09/25 07:00 05/11/25 06:36 2 UNITS Dextrose 50 ml UD PRN IV 05/09/25 01:00 Acetaminophen/ Hydrocodone Bitart 1 tab Q4HP PRN PO 05/09/25 01:00 Acetaminophen 650 mg Q6HP PRN PO 05/09/25 01:00 Carvedilol 6.25 mg Q12HR PO 05/09/25 10:00 05/11/25 09:48 6.25 MG Ergocalciferol 50,000 unit Q7D PO 05/09/25 09:45 05/09/25 10:52 50,000 UNIT Enoxaparin Sodium 30 mg DAILY SC 05/09/25 10:00 05/11/25 09:43 30 MG Sodium Bicarbonate 650 mg TID PO 05/09/25 14:00 05/11/25 05:50 650 MG Calcium Acetate 667 mg TIDWMEALS PO 05/09/25 18:00 Isosorbide Mononitrate 120 mg DAILY PO 05/10/25 10:00 05/11/25 09:47 120 MG Nifedipine 60 mg DAILY PO 05/10/25 10:00 05/11/25 09:46 60 MG Bisacodyl 10 mg QHSP [place] 05/09/25 22:00 05/10/25 22:16 10 MG Diphenhydramine HCl 25 mg Q8HR IV 05/09/25 22:00 05/11/25 05:51 25 MG Cefepime HCl 50 ml @ 12.5 mls/hr DAILY IV 05/11/25 10:00 05/11/25 09:42 12.5 MLS/HR Metronidazole 100 ml @ 100 mls/hr Q8HR IV 05/10/25 09:45 05/11/25 05:50 100 MLS/HR Metoclopramide HCl 10 mg Q6HR IV 05/10/25 12:30 05/11/25 05:50 10 MG Lorazepam 1 mg Q4HPRN PRN IV 05/10/25 12:30 Sodium Chloride 1,000 ml @ 75 mls/hr [id number] IV 05/11/25 09:15 05/11/25 09:15 75 MLS/HR Potassium Bicarbonate 50 meq DAILY PO 05/11/25 10:00 05/11/25 09:41 50 MEQ Examination Gen: 54-year-old female in mild distress Skin: Warm, dry, normal color and texture, no rash. HEENT: Normocephalic atraumatic, mucous membranes moist and pink, b/l blindness Neck: Cervical and supraclavicular nodes normal without enlargement, trachea is midline, thyroid gland is normal without masses. Pulmonary: Clear to auscultation and percussion bilaterally. Cardiac: Regular rate and rhythm. No murmur Abdomen: Soft, tender in the epigastric region, nondistended, bowel sounds present all 4 quadrants, no guarding, no rigidity, no organomegaly. Extremities: No cyanosis, clubbing, no edema Neuro: Cranial nerves II through XII grossly intact, normal affect and speech, no focal motor deficits. laboratory and microbiology Laboratory Tests 05/11/25 07:06 Test 05/11/25 07:06 Range/Units Serum Glucose 119 H 74-106 mg/dL Microbiology Date/Time Source Procedure Growth Status 05/09/25 18:00 Blood Blood Culture - Preliminary NO GROWTH AFTER 24 HOURS OF INCUBATION. Resulted 05/09/25 17:44 Voided Urine Urine Culture - Preliminary Resulted Labs and/or images reviewed: Labs reviewed by me, Image(s) reviewed by me Problem List/Assessment/Plan Problem List/Assessment/Plan # DKA, likely euglycemic possible # gastroparesis, in acute exacerbation due to above # possible gastroenteritis # slow transit constipation # intractable nausea and vomiting due to Above -ct abd/pelvis without contrast shows: Large volume stool within the rectum. Correlate for fecal impaction and other etiologies. - Zofran 4 mg q.4 PRN -Reglan 10 mg q.6 PRN changed to scheduled on 05/10 -Ativan 1 mg q.4 PRN -Benadryl 25 mg IV Q 8 scheduled -MiraLax 17 g per oral -ceftriaxone 1 g IV daily stopped on 05/10 -05/10 began vancomycin, cefepime, Flagyl -05/11 vancomycin stopped as it is causing nephrotoxicity #Hypertensive emergency #NSTEMI, type 2 #Prolonged QTC -EKG -Elevated troponin, demand ischemia 43, 38, 40 -clonidine 0.2 mg given once, discontinued -Losartan 100 mg per orally daily -hydralazine 50 mg q8 p.o. 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 possible neurogenic bladder; Renal diet; Start oral vitamin-D once per week; Obtain phosphorus level ; Obtain urinalysis and urine protein creatinine ratio -bladder scan shows 2000 mL fluid -Reynoso's catheter - Tamsulosin 0.4 mg per orally daily 05/10 nephrology consult suggest: sodium bicarbonate drip; Renal diet; oral vitamin-D once per week ; phosphorus binder when diet is resumed; no emergent indication for dialysis but given poor condition will require close followup 05/11 nephrology consult suggested Strict I&Os, Discontinue furosemide, Discontinue vancomycin, IV fluid half NS at 75 cc/hour #Diabetes mellitus HbA1c 6.1 -mild sliding scale insulin #hyperlipidemia -Lipid panels: cholesterol 266, ldl 166, hdl 51, TG 225 -Atorvastatin 40 mg HS #Congestive heart failure, systolic, HfpEf, NYHA 3, -BNP 581.48 -echo, LVEF normal 55-60%,; Right ventricular size and function normal; Mild left and right atrial dilation -Jardiance 10 mg per orally daily -Carvedilol 6.25 mg per orally b.i.d. daily -Losartan 100 mg per orally daily -Furosemide 20 mg per orally stopped on 05/11 #Hypokalemia -Repleted #Colonic diverticular disease. -as seen in ct abd/pelvis without contrast -outpatient followup #Nonobstructing right renal calculi. #Trace right hydronephrosis. 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 Ulloa, patient and nurse. Plan discussed with: Patient, Other (rn) Dietary Evaluation Review Comments: Nutrition Recommendation 1) advance to [facility] 60gm + Renal specific 60gm protein diet as medically feasible 2) Refer Certified Specialist of Renal Nutrition for renal diet education 3) Monitor PO intake, lab values, weight trend, and I/O Expected Outcomes/Goals: To meet >75% estimated needs Lab values to improve Fu 2-3 days Date of Service: May 11, 2025 Billing Provider: TUCKER GARCIAS MD Common Visit Codes: [id number] INP/OBS CARE(HIGH) PATRICK GALVAN May 11, 2025 14:01 TUCKER GARCIAS MD May 13, 2025 16:59
[2025-05-12] VITALS (8 sets, daily range): BP systolic 96–148; BP diastolic 59–83; PULSE 60–89; RESP 16–20; TEMP 97.8–98.7; O2SAT 91–97
[2025-05-12 05:25] LABS: Hematocrit 27.7 % (36.0-46.0); Hemoglobin 9.6 g/dL (12.2-16.2); Mean Corpuscular Hemoglobin 29.3 pg (28.0-32.0); Mean Corpuscular Volume 84.4 fL (80.0-100.0); Nucleated Red Blood Cells % 0.0 %
[2025-05-12 05:35] LABS: Anion Gap 13 (5-15); Carbon Dioxide 21 mmol/L (20-31); Chloride 105 mmol/L (98-107); Sodium 139 mmol/L (136-145)
[2025-05-12 05:39] LABS: Calcium 8.1 mg/dL (8.7-10.4); Potassium 3.5 mmol/L (3.5-5.1)
[2025-05-12 05:41] LABS: BUN/Creatinine Ratio 24.6 (10.0-20.0); Glucose 94 mg/dL (74-106)
[2025-05-12 05:43] LABS: Blood Urea Nitrogen 61 mg/dL (9-23)
--- NOTE | 2025-05-12 10:05 | DVHPN2 ---
Progress Note Date Seen: May 12, 2025 Medical Necessity Reason Pt with a Central, PICC or Fol: Yes The following are medically ne: Reynoso Catheter Subjective Patient reports: No new complaints Other Systems: Patient seen and examined by myself today in follow-up Objective vital signs Vital Sign Date Time Temp Pulse Resp B/P (MAP) Pulse Ox O2 Delivery O2 Flow Rate FiO2 05/12/25 08:19 97.9 75 16 141/79 (99) 96 97.9 05/11/25 20:00 Room Air* 0 21 Total Intake and Output 05/11/25 05/11/25 05/12/25 14:59 22:59 06:59 Intake Total 50 ml 200 ml 800 ml Output Total 50 ml 335 ml Balance 50 ml 150 ml 465 ml medications Current Medications Medications Dose Ordered Sig/Micheal Route Start Time Stop Time Status Last Admin Dose Admin Aspirin 162 mg DAILY PO 05/09/25 10:00 05/11/25 09:45 162 MG Pantoprazole Sodium 40 mg DAILY@0600 PO 05/09/25 06:00 05/12/25 05:31 40 MG Tamsulosin HCl 0.4 mg QPM PO 05/09/25 18:00 05/11/25 17:58 0.4 MG Atorvastatin Calcium 40 mg HS PO 05/09/25 22:00 05/11/25 21:26 40 MG Diagnostic Test (Pha) 1 strip ACHS 05/09/25 07:00 05/12/25 06:17 1 STRIP Insulin Human Regular ACHS SC 05/09/25 07:00 05/11/25 06:36 2 UNITS Dextrose 50 ml UD PRN IV 05/09/25 01:00 Acetaminophen/ Hydrocodone Bitart 1 tab Q4HP PRN PO 05/09/25 01:00 Acetaminophen 650 mg Q6HP PRN PO 05/09/25 01:00 Carvedilol 6.25 mg Q12HR PO 05/09/25 10:00 05/11/25 21:26 6.25 MG Ergocalciferol 50,000 unit Q7D PO 05/09/25 09:45 05/09/25 10:52 50,000 UNIT Enoxaparin Sodium 30 mg DAILY SC 05/09/25 10:00 05/11/25 09:43 30 MG Sodium Bicarbonate 650 mg TID PO 05/09/25 14:00 05/12/25 05:31 650 MG Calcium Acetate 667 mg TIDWMEALS PO 05/09/25 18:00 05/12/25 07:42 667 MG Isosorbide Mononitrate 120 mg DAILY PO 05/10/25 10:00 05/11/25 09:47 120 MG Nifedipine 60 mg DAILY PO 05/10/25 10:00 05/11/25 09:46 60 MG Bisacodyl 10 mg QHSP SC 05/09/25 22:00 05/10/25 22:16 10 MG Diphenhydramine HCl 25 mg Q8HR IV 05/09/25 22:00 05/12/25 05:34 25 MG Cefepime HCl 50 ml @ 12.5 mls/hr DAILY IV 05/11/25 10:00 05/11/25 09:42 12.5 MLS/HR Metronidazole 100 ml @ 100 mls/hr Q8HR IV 05/10/25 09:45 05/12/25 05:31 100 MLS/HR Metoclopramide HCl 10 mg Q6HR IV 05/10/25 12:30 05/12/25 05:31 10 MG Lorazepam 1 mg Q4HPRN PRN IV 05/10/25 12:30 Sodium Chloride 1,000 ml @ 75 mls/hr [id number] IV 05/11/25 09:15 05/12/25 01:30 75 MLS/HR Potassium Bicarbonate 50 meq DAILY PO 05/11/25 10:00 05/11/25 09:41 50 MEQ Examination: LUNGS:Normal, CVS:Normal, MSK:Normal laboratory and microbiology Laboratory Tests 05/12/25 05:05 Test 05/12/25 05:05 Range/Units Serum Glucose 94 74-106 mg/dL Microbiology Date/Time Source Procedure Growth Status 05/09/25 18:00 Blood Blood Culture - Preliminary NO GROWTH AFTER 48 HOURS OF INCUBATION. Resulted 05/09/25 17:44 Voided Urine Urine Culture - Preliminary Resulted Problem List/Assessment/Plan Problem List/Assessment/Plan Acute kidney injury superimposed Chronic Kidney Disease secondary hemodynamic mediated Vancomycin nephrotoxicity Diabetic ketoacidosis Hyperglycemia Hypokalemia Hypertensive emergency Vitamin-D deficiency Hypokalemia Nephrotic proteinuria due to underlying diabetic nephropathy Recommendations Kidney function slightly improving today Increased urine output Strict I&Os Discontinue furosemide Discontinue vancomycin potassium replacement IV fluid half NS at 75 cc/hour Insulin sliding scale We will continue to follow Plan discussed with: Patient Dietary Evaluation Review Comments: Nutrition Recommendation 1) advance to [facility] 60gm + Renal specific 60gm protein diet as medically feasible 2) Refer Certified Specialist of Renal Nutrition for renal diet education 3) Monitor PO intake, lab values, weight trend, and I/O Expected Outcomes/Goals: To meet >75% estimated needs Lab values to improve Fu 2-3 days CODY VAIL MD May 12, 2025 10:05
[2025-05-12 11:17] LABS: Protein, Urine 743.5 mg/dL (1-14)
--- NOTE | 2025-05-12 12:58 | DVHPN2 ---
Subjective I am assuming the care of the patient from today onwards who was under the care of the hospitalist team. Chart reviewed. 54-year-old female with a known history of diabetes mellitus type 2, hypertension, CKD, congestive heart failure, legally blind, chronic indwelling Reynoso catheter for chronic urinary retention recently removed at home by the home health care nurse presented to the hospital with a nausea and vomiting and high blood pressure. Patient's nausea and vomiting has been resolved. Kidney functions has been improving. Changes from previous H/P or p: No Changes Objective Vitals Vital Signs Date Time Temp Pulse Resp B/P (MAP) Pulse Ox O2 Delivery O2 Flow Rate FiO2 05/12/25 10:15 75 141/79 05/12/25 08:19 97.9 16 96 97.9 05/12/25 08:00 Room Air* 0 21 Intake/Output Intake and Output 05/12/25 07:00 Intake Total 1050 ml Output Total 385 ml Balance 665 ml Intake Oral 200 ml IV Total 850 ml Output Urine Total 385 ml # Bowel Movements 1 Exam HEENT pupils are reactive Neck is supple CV is S1-S2 regular rate and rhythm Respiratory diminished breath sounds bases GI positive bowel sound Extremity no edema [employer] no motor deficit Medications Current Medications Medications Dose Ordered Sig/Micheal Route Start Time Stop Time Status Last Admin Dose Admin Aspirin 162 mg DAILY PO 05/09/25 10:00 05/12/25 10:14 162 MG Pantoprazole Sodium 40 mg DAILY@0600 PO 05/09/25 06:00 05/12/25 05:31 40 MG Tamsulosin HCl 0.4 mg QPM PO 05/09/25 18:00 05/11/25 17:58 0.4 MG Atorvastatin Calcium 40 mg HS PO 05/09/25 22:00 05/11/25 21:26 40 MG Diagnostic Test (Pha) 1 strip ACHS 05/09/25 07:00 05/12/25 11:41 1 STRIP Insulin Human Regular ACHS SC 05/09/25 07:00 05/11/25 06:36 2 UNITS Dextrose 50 ml UD PRN IV 05/09/25 01:00 Acetaminophen/ Hydrocodone Bitart 1 tab Q4HP PRN PO 05/09/25 01:00 Acetaminophen 650 mg Q6HP PRN PO 05/09/25 01:00 Carvedilol 6.25 mg Q12HR PO 05/09/25 10:00 05/12/25 10:15 6.25 MG Ergocalciferol 50,000 unit Q7D PO 05/09/25 09:45 05/09/25 10:52 50,000 UNIT Enoxaparin Sodium 30 mg DAILY SC 05/09/25 10:00 05/12/25 10:12 30 MG Sodium Bicarbonate 650 mg TID PO 05/09/25 14:00 05/12/25 05:31 650 MG Calcium Acetate 667 mg TIDWMEALS PO 05/09/25 18:00 05/12/25 11:51 667 MG Isosorbide Mononitrate 120 mg DAILY PO 05/10/25 10:00 05/12/25 10:13 120 MG Nifedipine 60 mg DAILY PO 05/10/25 10:00 05/12/25 10:14 60 MG Bisacodyl 10 mg QHSP SC 05/09/25 22:00 05/10/25 22:16 10 MG Diphenhydramine HCl 25 mg Q8HR IV 05/09/25 22:00 05/12/25 05:34 25 MG Cefepime HCl 50 ml @ 12.5 mls/hr DAILY IV 05/11/25 10:00 05/12/25 10:15 12.5 MLS/HR Metronidazole 100 ml @ 100 mls/hr Q8HR IV 05/10/25 09:45 05/12/25 05:31 100 MLS/HR Metoclopramide HCl 10 mg Q6HR IV 05/10/25 12:30 05/12/25 05:31 10 MG Lorazepam 1 mg Q4HPRN PRN IV 05/10/25 12:30 Sodium Chloride 1,000 ml @ 75 mls/hr [id number] IV 05/11/25 09:15 05/12/25 11:29 75 MLS/HR Potassium Bicarbonate 50 meq DAILY PO 05/11/25 10:00 05/12/25 10:12 50 MEQ Laboratory Results Laboratory Tests 05/12/25 05:05 Chemistry Test 05/12/25 05:05 Calcium Level 8.1 mg/dL (8.7-10.4) L Urinalysis Test 05/09/25 13:14 05/11/25 10:00 Urine Color Light-brown (Yellow) Urine Clarity Ex.turbid (Clear) Urine pH 6.5 (5.0-9.0) Urine Specific Helper 1.017 (1.001-1.035) Urine Protein 3+ (Negative) H Urine Ketones 1+ (Negative) H Urine Blood 1+ /uL (Negative) H Urine Nitrite Negative (Negative) Urine Bilirubin Negative (Negative) Urine Urobilinogen Normal mg/dL (Negative) Urine Leukocyte Esterase 3+ /uL (Negative) Urine RBC 35 /hpf (0 - 4) Urine WBC Clumps Present /hpf (None Seen) Urine Microscopic WBC 825 /HPF (0-5) H Urine Squamous Epithelial Cells None seen /hpf (<5) Urine Bacteria None seen /hpf (None Seen) Urine Yeast (Budding) Loaded /hpf (None Seen) Urine Glucose 2+ mg/dL (Normal) H Urine Creatinine 93.31 mg/dL (30.0-125.0) Urine Protein/Creatinine Ratio 7.97 Urine Sodium Pending Urine Total Protein 743.5 mg/dL (1-14) H Microbiology Microbiology Date/Time Source Procedure Growth Status 05/09/25 18:00 Blood Blood Culture - Preliminary NO GROWTH AFTER 48 HOURS OF INCUBATION. Resulted 05/09/25 17:44 Voided Urine Urine Culture - Preliminary Resulted Assessment/Plan Assessment/Plan 54-year-old female with a known history of diabetes mellitus type 2, hypertension, CKD, legally blind, chronic indwelling Reynoso catheter for chronic urinary retention recently removed at home by the home health care nurse presented to the hospital with a nausea and vomiting and high blood pressure found to have 1. Hypertensive emergency, currently resolved 2. Elevated troponin suspect demand ischemia secondary to hypertensive emergency 3. Nausea and vomiting, resolved 4. Urinary retention status post Reynoso catheter placement with a history of chronic indwelling Reynoso catheter with a fungal colonization 5. Hyperglycemia in the setting of diabetes mellitus type 2 6. Acute kidney injury suspected secondary to vasomotor nephropathy/vancomycin induced toxicity with a known history of CKD stage IV 7. 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 Metabolic acidosis secondary to acute kidney injury does not seem to be diabetic ketoacidosis 9. Legal blindness -gentle IV hydration repeat kidney functioning, outpatient follow up with the Urology for urinary -renal diet, PT evaluation and treatment, discharge plan. Plan discussed with: Patient Date of Service: May 12, 2025 Billing Provider: DIAMOND LOTT MD Common Visit Codes: [id number] INP/OBS CARE(MOD) DIAMOND LOTT MD May 12, 2025 12:57
[2025-05-13] VITALS (7 sets, daily range): BP systolic 133–146; BP diastolic 78–85; PULSE 65–70; RESP 14–17; TEMP 36.7; O2SAT 97–99
--- NOTE | 2025-05-13 09:42 | DVHPN2 ---
Progress Note Date Seen: May 13, 2025 Medical Necessity Reason Pt with a Central, PICC or Fol: Yes The following are medically ne: Reynoso Catheter Subjective Other Systems: Patient seen and examined by myself today in follow-up Objective vital signs Vital Sign Date Time Temp Pulse Resp B/P (MAP) Pulse Ox O2 Delivery O2 Flow Rate FiO2 05/13/25 09:27 97.1 70 16 146/84 (104) 97 97.1 05/12/25 20:00 Room Air* 0 21 Total Intake and Output 05/12/25 05/12/25 05/13/25 15:00 23:00 07:00 Intake Total 50 ml 1170 ml 875 ml Output Total 350 ml 375 ml Balance 50 ml 820 ml 500 ml medications Current Medications Medications Dose Ordered Sig/Micheal Route Start Time Stop Time Status Last Admin Dose Admin Aspirin 162 mg DAILY PO 05/09/25 10:00 05/12/25 10:14 162 MG Pantoprazole Sodium 40 mg DAILY@0600 PO 05/09/25 06:00 05/13/25 05:34 40 MG Tamsulosin HCl 0.4 mg QPM PO 05/09/25 18:00 05/12/25 17:47 0.4 MG Atorvastatin Calcium 40 mg HS PO 05/09/25 22:00 05/12/25 21:37 40 MG Diagnostic Test (Pha) 1 strip ACHS 05/09/25 07:00 05/13/25 05:49 1 STRIP Insulin Human Regular ACHS SC 05/09/25 07:00 05/12/25 21:45 2 UNITS Dextrose 50 ml UD PRN IV 05/09/25 01:00 Acetaminophen/ Hydrocodone Bitart 1 tab Q4HP PRN PO 05/09/25 01:00 Acetaminophen 650 mg Q6HP PRN PO 05/09/25 01:00 Carvedilol 6.25 mg Q12HR PO 05/09/25 10:00 05/12/25 21:41 6.25 MG Ergocalciferol 50,000 unit Q7D PO 05/09/25 09:45 05/09/25 10:52 50,000 UNIT Enoxaparin Sodium 30 mg DAILY SC 05/09/25 10:00 05/12/25 10:12 30 MG Sodium Bicarbonate 650 mg TID PO 05/09/25 14:00 05/13/25 05:34 650 MG Calcium Acetate 667 mg TIDWMEALS PO 05/09/25 18:00 05/12/25 17:47 667 MG Isosorbide Mononitrate 120 mg DAILY PO 05/10/25 10:00 05/12/25 10:13 120 MG Nifedipine 60 mg DAILY PO 05/10/25 10:00 05/12/25 10:14 60 MG Bisacodyl 10 mg QHSP [place] 05/09/25 22:00 05/10/25 22:16 10 MG Diphenhydramine HCl 25 mg Q8HR IV 05/09/25 22:00 05/13/25 05:33 25 MG Cefepime HCl 50 ml @ 12.5 mls/hr DAILY IV 05/11/25 10:00 05/12/25 10:15 12.5 MLS/HR Metronidazole 100 ml @ 100 mls/hr Q8HR IV 05/10/25 09:45 05/13/25 05:32 100 MLS/HR Metoclopramide HCl 10 mg Q6HR IV 05/10/25 12:30 05/13/25 05:33 10 MG Lorazepam 1 mg Q4HPRN PRN IV 05/10/25 12:30 Sodium Chloride 1,000 ml @ 75 mls/hr [id number] IV 05/11/25 09:15 05/13/25 05:42 75 MLS/HR Potassium Bicarbonate 50 meq DAILY PO 05/11/25 10:00 05/12/25 10:12 50 MEQ Examination: LUNGS:Normal, CVS:Normal, MSK:Normal laboratory and microbiology Laboratory Tests 05/12/25 05:05 Test 05/12/25 05:05 Range/Units Serum Glucose 94 74-106 mg/dL Microbiology Date/Time Source Procedure Growth Status 05/09/25 18:00 Blood Blood Culture - Preliminary NO GROWTH AFTER 72 HOURS OF INCUBATION. Resulted 05/09/25 17:44 Voided Urine Urine Culture - Preliminary Resulted Problem List/Assessment/Plan Problem List/Assessment/Plan Acute kidney injury superimposed Chronic Kidney Disease stage IV secondary hemodynamic mediated Vancomycin nephrotoxicity Diabetic ketoacidosis Hyperglycemia Hypokalemia Hypertensive emergency Vitamin-D deficiency Hypokalemia Glaucoma Nephrotic proteinuria due to underlying diabetic nephropathy Recommendations Kidney function slightly improving today Increased urine output Strict I&Os Discontinue furosemide Discontinue vancomycin potassium replacement IV fluid half NS at 75 cc/hour Insulin sliding scale We will continue to follow Plan discussed with: Patient, Daughter My Orders My Orders Orders - CODY VAIL MD Procedure Category Date Status Time Immunofixation Urine LAB 05/12/25 Logged 10:06 Dietary Evaluation Review Comments: Nutrition Recommendation 1) advance to [facility] 60gm + Renal specific 60gm protein diet as medically feasible 2) Refer Certified Specialist of Renal Nutrition for renal diet education 3) Monitor PO intake, lab values, weight trend, and I/O Expected Outcomes/Goals: To meet >75% estimated needs Lab values to improve Fu 2-3 days CODY VAIL MD May 13, 2025 09:42
[2025-05-13 15:04] LABS: Chloride 103 mmol/L (98-107); Potassium 4.5 mmol/L (3.5-5.1)
[2025-05-13 15:05] LABS: Anion Gap 9 (5-15); Carbon Dioxide 23 mmol/L (20-31)
[2025-05-13 15:08] LABS: Calcium 7.5 mg/dL (8.7-10.4); Sodium 135 mmol/L (136-145)
[2025-05-13 15:10] LABS: BUN/Creatinine Ratio 27.6 (10.0-20.0)
[2025-05-13 15:20] LABS: Blood Urea Nitrogen 67 mg/dL (9-23); Glucose 195 mg/dL (74-106)
[2025-05-13] MEDS ORDERED: CARV6.2517 PO (17:17)
[2025-05-13] MEDS ORDERED: NIFE1TAB31 PO (17:17)
[2025-05-13] MEDS ORDERED: ISO60SRT PO (17:17)
[2025-05-13] MEDS ORDERED: CEFD300C2 PO (17:17)
--- NOTE | 2025-05-13 17:20 | DVHDS2 ---
Discharge Summary Date of Admission May 08, 2025 at 23:57 Date of Discharge: May 13, 2025 Labs/Diagnostic Data: Laboratory Results Test 05/13/25 14:30 05/13/25 11:30 05/12/25 05:05 05/11/25 10:00 Sodium Level 135 mmol/L (136-145) Potassium Level 4.5 mmol/L (3.5-5.1) Chloride Level 103 mmol/L (98-107) Carbon Dioxide Level 23 mmol/L (20-31) Anion Gap 9 (5-15) Blood Urea Nitrogen 67 mg/dL (9-23) Creatinine 2.43 mg/dL (0.550-1.02) Glomerular Filtration Rate Calc 23 mL/min (>90) BUN/Creatinine Ratio 27.6 (10.0-20.0) Serum Glucose 195 mg/dL (74-106) Calcium Level 7.5 mg/dL (8.7-10.4) POC Glucose 160 mg/dl (70-106) White Blood Count 10.7 10^3/uL (4.4-10.8) Red Blood Count 3.28 10^6/uL (4.0-5.20) Hemoglobin 9.6 g/dL (12.2-16.2) Hematocrit 27.7 % (36.0-46.0) Mean Corpuscular Volume 84.4 fL (80.0-100.0) Mean Corpuscular Hemoglobin 29.3 pg (28.0-32.0) Mean Corpuscular Hemoglobin Concent 34.7 g/dL (32.0-36.0) Red Cell Distribution Width 15.2 % (11.8-14.3) Platelet Count 301 10^3/uL (140-450) Mean Platelet Volume 7.6 fL (6.9-10.8) Neutrophils (%) (Auto) 74.0 % (37.0-80.0) Lymphocytes (%) (Auto) 14.7 % (10.0-50.0) Monocytes (%) (Auto) 8.0 % (0.0-12.0) Eosinophils (%) (Auto) 2.8 % (0.0-7.0) Basophils (%) (Auto) 0.5 % (0.0-2.0) Neutrophils # (Auto) 7.9 10 ^3/uL (1.6-8.6) Lymphocytes # (Auto) 1.6 10 ^3/uL (0.4-5.4) Monocytes # (Auto) 0.9 10 ^3/uL (0-1.3) Eosinophils # (Auto) 0.3 10 ^3/uL (0-0.8) Basophils # (Auto) 0.1 10 ^3/uL (0-0.2) Nucleated Red Blood Cells 0.0 % Urine Creatinine 93.31 mg/dL (30.0-125.0) Urine Protein/Creatinine Ratio 7.97 Urine Sodium 16 mmol/L (40-220) Urine Total Protein 743.5 mg/dL (1-14) Test 05/11/25 07:06 05/10/25 18:09 05/10/25 06:16 05/09/25 18:00 Random Vancomycin Level 15.9 ug/mL (5-10) Stool Occult Blood Negative (Negative) Stool Occult Blood Sample #3 (Negative) Serum Osmolality 337 mOsm/kg (278-298) Beta-Hydroxybutyric Acid 3.322 mmol/L (< 0.4) Lactic Acid Level 0.7 mmol/L (0.4-2.0) Test 05/09/25 13:15 05/09/25 13:14 05/09/25 08:09 05/09/25 00:22 Urine Opiates Screen Neg (NEGATIVE) Urine Fentanyl Screen Neg (NEGATIVE) Urine Barbiturates Screen Neg (NEGATIVE) Urine Phencyclidine Screen Neg (NEGATIVE) Urine Amphetamines Screen Neg (NEGATIVE) Urine Benzodiazepines Screen Neg (NEGATIVE) Urine Cocaine Screen Neg (NEGATIVE) Urine Cannabinoids Screen Neg (NEGATIVE) Urine Color Light-brown (Yellow) Urine Clarity Ex.turbid (Clear) Urine pH 6.5 (5.0-9.0) Urine Specific [place] 1.017 (1.001-1.035) Urine Protein 3+ (Negative) Urine Ketones 1+ (Negative) Urine Blood 1+ /uL (Negative) Urine Nitrite Negative (Negative) Urine Bilirubin Negative (Negative) Urine Urobilinogen Normal mg/dL (Negative) Urine Leukocyte Esterase 3+ /uL (Negative) Urine RBC 35 /hpf (0 - 4) Urine WBC Clumps Present /hpf (None Seen) Urine Microscopic WBC 825 /HPF (0-5) Urine Squamous Epithelial Cells None seen /hpf (<5) Urine Bacteria None seen /hpf (None Seen) Urine Yeast (Budding) Loaded /hpf (None Seen) Urine Glucose 2+ mg/dL (Normal) Hemoglobin A1c 6.1 % A1C (<5.7) Phosphorus Level 6.3 mg/dL (2.4-5.1) Total Bilirubin 0.4 mg/dL (0.2-1.0) Aspartate Amino Transferase (AST) 18 U/L (13-40) Alanine Aminotransferase (ALT) 14 U/L (7-40) Alkaline Phosphatase 59 U/L (46-116) Total Protein 7.0 g/dL (5.7-8.2) Albumin 4.2 g/dL (3.2-4.8) Triglycerides Level 225 mg/dL (< 150) Cholesterol Level 266 mg/dL (< 200) LDL Cholesterol 166 mg/dL (< 100) HDL Cholesterol 51 mg/dL (40-59) Vitamin B12 Level 879 pg/mL (211-911) Vitamin D 25-Hydroxy 12.7 ng/mL (30.0-100) Thyroid Stimulating Hormone (TSH) 2.00 uIU/mL (0.55-4.78) Parathyroid Hormone (Intact) 34.4 pg/mL (18.4-80.1) Troponin I High Sensitivity 40 ng/L (</=34) Test 05/08/25 21:15 Prothrombin Time 10.3 sec (9.3-11.8) Prothrombin Time INR 0.97 (0.9-1.15) Activated Partial Thromboplast Time 25.9 SEC (24.5-34.5) Magnesium Level 2.9 mg/dL (1.6-2.6) B-Type Natriuretic Peptide 581.48 pg/mL (0-100) Other Laboratory Tests 05/13/25 14:30 05/12/25 05:05 Brief Hx & Hospital Course: 54-year-old female with a known history of diabetes mellitus type 2, hypertension, CKD, legally blind, chronic indwelling Reynoso catheter for chronic urinary retention recently removed at home by the home health care nurse presented to the hospital with a nausea and vomiting and high blood pressure found to have hypertensive emergency. Patient also had elevated opened of which was suspected secondary to demand ischemia secondary to hypertensive emergency. Visual found to have urinary tract infection as with the urinary retention status post Reynoso catheter placement. Patient does have chronic indwelling Reynoso catheter at home with fungal colonization. Patient's UDS was distributed IV antibiotics which will be switched to p.o. antibiotics. Patient acute kidney injury initially going to bursa after the vancomycin toxicity images currently improving. Patient does have nephrotic range proteinuria needs close follow-up as an outpatient by the Nephrology. Patient being discharged under stable condition. Condition at Discharge: Stable Final Diagnosis/Problems List 54-year-old female with a known history of diabetes mellitus type 2, hypertension, CKD, legally blind, chronic indwelling Reynoso catheter for chronic urinary retention recently removed at home by the home health care nurse presented to the hospital with a nausea and vomiting and high blood pressure found to have 1. Hypertensive emergency, currently resolved 2. Elevated troponin suspect demand ischemia secondary to hypertensive emergency 3. Nausea and vomiting, resolved 4. Urinary retention status post Reynoso catheter placement with a history of chronic indwelling Reynoso catheter with a fungal colonization 5. Hyperglycemia in the setting of diabetes mellitus type 2 6. Acute kidney injury suspected secondary to vasomotor nephropathy/vancomycin induced toxicity with a known history of CKD stage IV 7. 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 Metabolic acidosis secondary to acute kidney injury does not seem to be diabetic ketoacidosis 9. Legal blindness Discharge Disposition: Home SNF Discharge Will this Physician continue t: No Discharge Instruct/Medications Diet: Cardiac 2g Na,low cholest Activity: No Restrictions, As Tolerated Follow Up/Referral: The PCP in 1-2 weeks Follow up with the Nephrology Dr. Silva in 1-2 weeks with a repeat BMP. Medications: Resume home medications. New prescription as prescribed. New Medications: Carvedilol (Coreg) 6.25 Mg Tab 1 TAB PO BID, #60 TAB 5 Refills Cefdinir (Cefdinir) 300 Mg Cap 1 CAP PO BID for 3 Days, #6 CAP Isosorbide Mononitrate (Isosorbide Mononitrate ER) 60 Mg Tab 120 MG PO DAILY for 30 Days, #60 TAB Nifedipine (Nifedipine Er) 30 Mg Tab 3 TAB PO DAILY, #90 TAB 1 Refill Continued Medications: Acetaminophen (Acetaminophen) 500 Mg Tab 500 MG PO Q4HP PRN for PAIN SCALE 1 THRU 6, TAB Aspirin (Aspir-Low) 81 Mg Tab 81 MG PO DAILY for 30 Days, MG Atorvastatin Calcium (Atorvastatin Calcium) 40 Mg Tab 40 MG PO DAILY, TAB Dorzolamide-Timolol (Dorzolamide Hcl/Timolol M) 1 Ml Kristal 1 DROP EACHEYE BID, #10 ML 3 Refills Empagliflozin (Jardiance) 10 Mg Tab 10 MG PO QAM, TAB Furosemide (Furosemide) 40 Mg Tab 40 MG PO BIDD for 30 Days, MG Latanoprost (Latanoprost) 0.005 % Kristal 0.005 % OP QPM, ML Metoclopramide Hcl (Metoclopramide Hcl) 10 Mg Tab 10 MG PO QID for 30 Days, MG Ondansetron HCl (Ondansetron) 4 Mg Tab 4 MG PO Q8HP PRN for NAUSEA / VOMITING, TAB Pantoprazole Sodium (Pantoprazole Sodium) 40 Mg Inj 40 MG PO QAM, INJ Discontinued Medications: Carvedilol (Carvedilol) 12.5 Mg Tab 12.5 MG PO Q12HR for 30 Days, MG Hydralazine HCl (Hydralazine HCl) 25 Mg Tab 25 MG PO QID, TAB Isosorbide Mononitrate (Isosorbide Mononitrate Er) 60 Mg Tab 60 MG PO DAILY for 30 Days, MG Scheduled Aspirin (Aspir-Low), 81 MG PO DAILY, (Reported) Atorvastatin Calcium (Atorvastatin Calcium), 40 MG PO DAILY, (Reported) Carvedilol (Carvedilol), 12.5 MG PO Q12HR, (Reported) Carvedilol (Coreg), 1 TAB PO BID Cefdinir (Cefdinir), 1 CAP PO BID Dorzolamide-Timolol (Dorzolamide Hcl/Timolol M), 1 DROP EACHEYE BID, (Reported) Empagliflozin (Jardiance), 10 MG PO QAM, (Reported) Furosemide (Furosemide), 40 MG PO BIDD, (Reported) Hydralazine HCl (Hydralazine HCl), 25 MG PO QID, (Reported) Isosorbide Mononitrate (Isosorbide Mononitrate Er), 60 MG PO DAILY, (Reported) Isosorbide Mononitrate (Isosorbide Mononitrate ER), 120 MG PO DAILY Latanoprost (Latanoprost), 0.005 % OP QPM, (Reported) Metoclopramide Hcl (Metoclopramide Hcl), 10 MG PO QID, (Reported) Nifedipine (Nifedipine Er), 3 TAB PO DAILY Pantoprazole Sodium (Pantoprazole Sodium), 40 MG PO QAM, (Reported) Scheduled PRN Acetaminophen (Acetaminophen), 500 MG PO Q4HP PRN for PAIN SCALE 1 THRU 6, (Reported) Ondansetron HCl (Ondansetron), 4 MG PO Q8HP PRN for NAUSEA / VOMITING, (Reported) Discharge Statement: "Patient was advised to return to the ER or call 911 if any headaches, dizziness, shortness of breath, chest pain, abdominal pain, bleeding, fevers, or worsening of medical condition. Patient was counseled about treatment plan, medications, possible side effects, patientverbalized understanding. All questions were answered to the best of my ability. This discharge took greater then 30 minutes in planning, reviewing documentation, counseling the patient, and discussing with other team members." ASSESSMENT ASSESSMENT Assessment 54-year-old female with a known history of diabetes mellitus type 2, hypertension, CKD, legally blind, chronic indwelling Reynoso catheter for chronic urinary retention recently removed at home by the home health care nurse presented to the hospital with a nausea and vomiting and high blood pressure found to have 1. Hypertensive emergency, currently resolved 2. Elevated troponin suspect demand ischemia secondary to hypertensive emergency 3. Nausea and vomiting, resolved 4. Urinary retention status post Reynoso catheter placement with a history of chronic indwelling Reynoso catheter with a fungal colonization 5. Hyperglycemia in the setting of diabetes mellitus type 2 6. Acute kidney injury suspected secondary to vasomotor nephropathy/vancomycin induced toxicity with a known history of CKD stage IV 7. 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 Metabolic acidosis secondary to acute kidney injury does not seem to be diabetic ketoacidosis 9. Legal blindness Date of Service: May 13, 2025 Billing Provider: DIAMOND LOTT MD Common Visit Codes: 91698-ZMD/OBS DISCH DAY >30min DIAMOND LOTT MD May 13, 2025 17:20
== END 2025-05-13 19:20 | disposition home or self-care (01) | DRG 248 ==
LOC: EDBD 20:34 → ER 20:34 → OVERFLOW 23:57 → CENTRAL 05-09 15:35 → TELE-CENTR 05-09 19:48 → CENTRAL 05-13 01:37
PROVIDERS: ADMIT Student in an Organized Health Care Education/Training Program; ATTEND Student in an Organized Health Care Education/Training Program
DX: A04.9 Bacterial intestinal infection, unspecified (principal); N17.0 Acute kidney failure with tubular necrosis; R65.11 Systemic inflammatory response syndrome (SIRS) of non-infectious origin with acute organ dysfunction; I16.1 Hypertensive emergency; I21.A1 Myocardial infarction type 2; E11.10 Type 2 diabetes mellitus with ketoacidosis without coma; I20.0 Unstable angina; I50.9 Heart failure, unspecified; I13.0 Hypertensive heart and chronic kidney disease with heart failure and stage 1 through stage 4 chronic kidney disease, or unspecified chronic kidney disease; E11.22 Type 2 diabetes mellitus with diabetic chronic kidney disease; N18.4 Chronic kidney disease, stage 4 (severe); H54.8 Legal blindness, as defined in USA; E87.6 Hypokalemia; E55.9 Vitamin D deficiency, unspecified; E78.5 Hyperlipidemia, unspecified; N20.0 Calculus of kidney; E11.65 Type 2 diabetes mellitus with hyperglycemia; K57.30 Diverticulosis of large intestine without perforation or abscess without bleeding; E86.0 Dehydration; T36.8X5A Adverse effect of other systemic antibiotics, initial encounter; N39.0 Urinary tract infection, site not specified; K31.84 Gastroparesis; E11.43 Type 2 diabetes mellitus with diabetic autonomic (poly)neuropathy; Z79.899 Other long term (current) drug therapy; Y92.89 Other specified places as the place of occurrence of the external cause
CPT/HCPCS: 36415; 71045; 74018; 74176; 76775; 76856; 80048; 80053; 80061; 80202; 80307; 81001; 82010; 82270; 82306; 82570; 82607; 82962; 83036; 83605; 83735; 83880; 83930; 83970; 84100; 84156; 84300; 84443; 84484; 85025; 85610; 85730; 87040; 87086; 87088; 93005; 93306; 96361; 96374; G0378; J1815; J2003; J2405; J3480; J3490